=== PATIENT | male | born 1965 | race Hispanic/Latino ===

== ENCOUNTER 2021-06-01 22:05 | Emergency (ER) | payer SELFPAY ==
[2021-06-02] MEDS ORDERED: AZITHROMYCIN 250 MG TAB ONE (01:04)
[2021-06-02] MEDS ORDERED: predniSONE 20 MG TAB ONE (01:04)
[2021-06-02] MEDS ORDERED: FAMOTIDINE 20 MG TAB ONE (01:04)
[2021-06-02 01:13] LABS: SARS-COV-2 RT PCR POSITIVE (NEGATIVE)
--- NOTE | 2021-06-02 01:19 | EDPHYS ---
Physician Documentation [facility] Name: Romaine Ryan Age: 55 yrs Sex: Male : 1965 Arrival Date: 06/01/2021 Time: 22:08 Bed DIS2 Private MD: ED Physician Paco Knutson HPI: 06/01 23:45 This 55 yrs old Male presents to ER via Ambulatory with complaints of Cough, isaiah Runny Nose, Fever, BODY ACHES. 23:45 The patient or guardian reports airway noise, cough, described as mild, difficulty isaiah breathing. Onset: The symptoms/episode began/occurred 2 day(s) ago. Severity of symptoms: At their worst the symptoms were mild, in the emergency department the symptoms are unchanged. Modifying factors: The symptoms are alleviated by nothing, the symptoms are aggravated by exertion. Associated signs and symptoms: The patient has no apparent associated signs or symptoms. The patient has not experienced similar symptoms in the past. 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 - Social history:: Smoking status: Patient denies any tobacco usage or history of. Patient uses alcohol, occasionally. ROS: 23:49 Constitutional: Negative for fever, chills, and weight loss, Eyes: Negative for injury, isaiah pain, redness, and discharge, ENT: Negative for injury, pain, and discharge, Neck: Negative for injury, pain, and swelling, Cardiovascular: Negative for chest pain, palpitations, and edema, Abdomen/GI: Negative for abdominal pain, nausea, vomiting, diarrhea, and constipation, Back: Negative for injury and pain, : Negative for injury, bleeding, discharge, and swelling, MS/Extremity: Negative for injury and deformity, Skin: Negative for injury, rash, and discoloration, Neuro: Negative for headache, weakness, numbness, tingling, and seizure, Psych: Negative for depression, anxiety, suicide ideation, homicidal ideation, and hallucinations, Allergy/Immunology: Negative for hives, rash, and allergies, Endocrine: Negative for neck swelling, polydipsia, polyuria, polyphagia, and marked weight changes, Hematologic/Lymphatic: Negative for swollen nodes, abnormal bleeding, and unusual bruising. 23:49 Respiratory: Positive for cough, shortness of breath, at rest. Exam: 23:49 Constitutional: This is a well developed, well nourished patient who is awake, alert, isaiah and in no acute distress. Head/Face: Normocephalic, atraumatic. Eyes: Pupils equal round and reactive to light, extra-ocular motions intact. Lids and lashes normal. Conjunctiva and sclera are non-icteric and not injected. Cornea within normal limits. Periorbital areas with no swelling, redness, or edema. ENT: Nares patent. No nasal discharge, no septal abnormalities noted. Tympanic membranes are normal and external auditory canals are clear. Oropharynx with no redness, swelling, or masses, exudates, or evidence of obstruction, uvula midline. Mucous membranes moist. Neck: Trachea midline, no thyromegaly or masses palpated, and no cervical lymphadenopathy. Supple, full range of motion without nuchal rigidity, or vertebral point tenderness. No Meningismus. Chest/axilla: Normal chest wall appearance and motion. Nontender with no deformity. No lesions are appreciated. Cardiovascular: Regular rate and rhythm with a normal S1 and S2. No gallops, murmurs, or rubs. Normal PMI, no JVD. No pulse deficits. Abdomen/GI: Soft, non-tender, with normal bowel sounds. No distension or tympany. No guarding or rebound. No evidence of tenderness throughout. Back: No spinal tenderness. No costovertebral tenderness. Full range of motion. Male : Normal genitalia with no discharge or lesions. Skin: Warm, dry with normal turgor. Normal color with no rashes, no lesions, and no evidence of cellulitis. MS/ Extremity: Pulses equal, no cyanosis. Neurovascular intact. Full, normal range of motion. Neuro: Awake and alert, GCS 15, oriented to person, place, time, and situation. Cranial nerves II-XII grossly intact. Motor strength 5/5 in all extremities. Sensory grossly intact. Cerebellar exam normal. Normal gait. Psych: Awake, alert, with orientation to person, place and time. Behavior, mood, and affect are within normal limits. 23:49 Respiratory: the patient does not display signs of respiratory distress, Respirations: normal, no acute changes, Breath sounds: bronchial sounds, that are mild, are scattered, decreased breath sounds, that are mild, are scattered, rhonchi, that are mild, stridor, is not appreciated, + upper airway congestion. wheezing: expiratory Vital Signs: 22:50 BP 110 / 79; Pulse 89; Resp 18; Temp 98.6(O); Pulse Ox 100% on R/A; Weight 72.57 kg kg (R); Height 5 ft. 8 in. (172.72 cm) (R); Pain 06/01; 06/02 01:32 BP 97 / 74; Pulse 82; Resp 20; Temp 98; Pulse Ox 99% on R/A; lp1 06/01 22:50 Body Mass Index 24.33 (72.57 kg, 172.72 cm) kg MDM: 06/01 23:31 Patient medically screened. [facility] 23:49 Differential diagnosis: bronchitis, flu. Antibiotic administration: The patient is isaiah discharged and will get outpatient antibiotics, Zithromax. The patient's Wells Deep Vein Thrombosis Score was calculated as follows: Total Score: 3-6 Pts - Mod Risk. Differential Diagnosis: Bronchitis Influenza Upper Respiratory Infection Sinusitis Pneumonia. The patient's pulmonary embolism risk score was calculated as follows: Total Score: 0-2 points. This patient was found to be at low risk for a pulmonary embolism by using the Well's assessment criteria. Immunization status: Influenza vaccine: Data reviewed: vital signs, nurses notes, lab test result(s), radiologic studies, plain films. Data interpreted: awake overnight monitor: rate is 89 beats/min, rhythm is regular, Pulse oximetry: on room air is 89 %. Test interpretation: by ED physician or midlevel provider: plain radiologic studies. Counseling: I had a detailed discussion with the patient and/or guardian regarding: the historical points, exam findings, and any diagnostic results supporting the discharge/admit diagnosis, lab results, radiology results. 06/01 23:45 Order name: Chest Pa And Lat (2 Views) XRAY isaiah 06/02 01:13 Order name: COVID-19/FLU A+B; Complete Time: 01:16 EDMS Administered Medications: 06/02 00:58 Drug: Zithromax (azithromycin) 500 mg Route: PO; lp1 01:16 Follow up: Response: No adverse reaction lp1 00:58 Drug: predniSONE 60 mg Route: PO; lp1 01:16 Follow up: Response: No adverse reaction lp1 00:58 Drug: Pepcid (famotidine) 20 mg Route: PO; lp1 01:16 Follow up: Response: No adverse reaction lp1 Disposition Summary: 06/02/21 01:18 Discharge Ordered Location: Home [facility] Problem: new [facility] Symptoms: have improved isaiah Condition: Stable isaiah Diagnosis - Acute bronchitis, unspecified isaiah - Cough isaiah - Coronavirus infection, unspecified isaiah Followup: [facility] - With: Private Physician - When: 2 - 3 days - Reason: Recheck today's complaints, Continuance of care, Re-evaluation by your physician Followup: [facility] - With: Cesar Badillo MD - When: 2 - 3 days - Reason: Recheck today's complaints, Continuance of care, Re-evaluation by your physician Discharge Instructions: - Discharge Summary Sheet [facility] - Acute Bronchitis, Adult isaiah - Cool Mist Vaporizer [facility] - Cough, Adult, [id number] [facility] - Aspirin and Your Heart [facility] - Cough, Adult [facility] - COVID-19 [facility] Forms: - Medication Reconciliation Form [facility] - Thank You Letter [facility] - Antibiotic Education [facility] - Prescription Opioid Use [facility] Prescriptions: - albuterol sulfate 90 mcg/actuation Inhalation HFA aerosol inhaler - inhale 2 puff by INHALATION route every 3-4 hours; 2 Pump; Refills: 0, Product [facility] Selection Permitted - Pepcid 20 mg Oral Tablet - take 1 tablet by ORAL route every 12 hours for 15 days; 30 tablet; Refills: 0, [facility] Product Selection Permitted - Zithromax 500 mg Oral Tablet - take 1 tablet by ORAL route once daily for 4 days; 4 tablet; Refills: 0, [facility] Product Selection Permitted - ivermectin 3 mg Oral tablet - take 4 tablet by ORAL route once daily; 20 tablet; Refills: 0, Product [facility] Selection Permitted - Prednisone 20 mg Oral Tablet - take 1 tablet by ORAL route once daily for 5 days; 5 tablet; Refills: 0, [facility] Product Selection Permitted Signatures: Dispatcher [employer] Paco Gibbons MD MD cha Pena, Laura, RN RN lp1 Azael, Ivory, RN RN kg Corrections: (The following items were deleted from the chart) 06/01 23:55 22:57 CORONAVIRUS+MR.LAB.JAQUAN ordered. EDMS EDMS 22:57 Influenza Screen (A \T\ B)+BA.ASTON.JAQUAN ordered. EDMS EDMS
--- NOTE | 2021-06-02 01:19 | ER ---
Nurse's Notes [facility] Name: Romaine Ryan Age: 55 yrs Sex: Male : 1965 Arrival Date: 06/01/2021 Time: 22:08 Bed DIS2 Private MD: Diagnosis: Acute bronchitis, unspecified;Cough;Coronavirus infection, unspecified Presentation: 06/01 22:50 Chief complaint: Patient states: Fever, Chills, Cough, Headache, Chest pain, SOB x 2 kg days. Coronavirus screen: Client denies travel out of the [place] in the last 14 days. At this time, unable to obtain information related to travel outside the [place] Client presents with at least one sign or symptom that may indicate coronavirus-19. Standard/surgical mask placed on the client. Provider contacted for isolation considerations. Ebola Screen: Patient negative for fever greater than or equal to 101.5 degrees Fahrenheit, and additional compatible Ebola Virus Disease symptoms Patient denies exposure to infectious person. Patient denies travel to an Ebola-affected area in the 21 days before illness onset. Initial Sepsis Screen: Does the patient meet any 2 criteria? No. Patient's initial sepsis screen is negative. Does the patient have a suspected source of infection? No. Patient's initial sepsis screen is negative. Risk Assessment: Do you want to hurt yourself or someone else? Patient reports no desire to harm self or others. Onset of symptoms was May 30, 2021. 22:50 Method Of Arrival: Ambulatory kg 22:50 Acuity: DAVID 4 kg Triage Assessment: 22:53 General: Appears uncomfortable, Behavior is calm, cooperative, appropriate for age, kg quiet. Pain: Complains of pain in face Pain radiates to Generalized Pain currently is 8 out of 10 on a pain scale. at worst was 8 out of 10 on a pain scale. level that patient reports is acceptable is 3 out of 10 on a pain scale. Quality of pain is described as squeezing, throbbing. 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 - Social history:: Smoking status: Patient denies any tobacco usage or history of. Patient uses alcohol, occasionally. Screenin:56 Abuse screen: Denies threats or abuse. Denies injuries from another. Nutritional kg screening: No deficits noted. Tuberculosis screening: No symptoms or risk factors identified. Fall Risk None identified. Assessment: 06/02 01:30 Reassessment: Patient appears in no apparent distress at this time. Patient readiness lp1 for discharge. Vital Signs: 06/01 22:50 BP 110 / 79; Pulse 89; Resp 18; Temp 98.6(O); Pulse Ox 100% on R/A; Weight 72.57 kg kg (R); Height 5 ft. 8 in. (172.72 cm) (R); Pain 06/01; 06/02 01:32 BP 97 / 74; Pulse 82; Resp 20; Temp 98; Pulse Ox 99% on R/A; lp1 06/01 22:50 Body Mass Index 24.33 (72.57 kg, 172.72 cm) kg ED Course: 06/01 22:08 Patient arrived in ED. wm 22:53 Triage completed. kg 22:53 Arm band placed on right wrist. kg 22:56 Patient has correct armband on for positive identification. kg 23:31 Paco Knutson MD is Attending Physician. isaiah 23:47 Tammy Taylor, RN is Primary Nurse. lp1 06/02 00:30 Chest Pa And Lat (2 Views) XRAY In Process Unspecified. EDMS 01:18 Cesar Badillo MD is Referral Physician. isaiah 01:33 No provider procedures requiring assistance completed. Patient did not have IV access lp1 during this emergency room visit. Administered Medications: 00:58 Drug: Zithromax (azithromycin) 500 mg Route: PO; lp1 01:16 Follow up: Response: No adverse reaction lp1 00:58 Drug: predniSONE 60 mg Route: PO; lp1 01:16 Follow up: Response: No adverse reaction lp1 00:58 Drug: Pepcid (famotidine) 20 mg Route: PO; lp1 01:16 Follow up: Response: No adverse reaction lp1 Outcome: 01:18 Discharge ordered by . isaiah 01:33 Discharged to home ambulatory. lp1 01:33 Condition: stable 01:33 Discharge instructions given to Instructed on discharge instructions, follow up and referral plans. medication usage, Demonstrated understanding of instructions, follow-up care, medications, Prescriptions given X 4. 01:34 Patient left the ED. lp1 Signatures: Dispatcher [employer] EDMS Paco Knutson MD MD cha Pena, Laura RN RN lp1 Ivory Addison RN RN Stephani Taylor Corrections: (The following items were deleted from the chart) 07:26 03:30 Reassessment: Patient appears in no apparent distress at this time. Patient lp1 readiness for discharge lp1
[2021-06-02 01:42] VITALS: BP 97/74; TEMP 98; O2SAT 99
--- NOTE | 2021-06-02 07:36 | RAD REPORT ---
EXAM DESCRIPTION: RAD - Chest Pa And Lat (2 Views) - 06/02/2021 12:30 am CLINICAL HISTORY: COUGH COMPARISON: No comparisons FINDINGS: No evidence of edema or pneumonia. The heart size is within normal limits.No acute osseous abnormality. No significant pleural effusions or pneumothorax. IMPRESSION: No acute cardiopulmonary disease.
== END 2021-06-02 01:34 | disposition home or self-care (01) ==
LOC: ER 22:05
DX: U07.1 COVID-19 (principal); J20.8 Acute bronchitis due to other specified organisms; Z88.1 Allergy status to other antibiotic agents; Z88.5 Allergy status to narcotic agent; Z88.7 Allergy status to serum and vaccine
CPT/HCPCS: 0240U; 71046; 99283; J7512; U0003

== ENCOUNTER 2024-06-25 10:48 | Emergency (ER) | payer OTHER, SELFPAY ==
[2024-06-25] MEDS ORDERED: HYDROCODONE/APAP 10/325 TAB ONE (11:13)
--- NOTE | 2024-06-25 12:35 | RAD REPORT ---
EXAM DESCRIPTION: RAD - Hand Right 3 View - 06/25/2024 11:36 am CLINICAL HISTORY: PAIN COMPARISON: No comparisons TECHNIQUE: Right hand, 3 views. FINDINGS: No fracture is identified. There is no dislocation or periosteal reaction noted. Scattered up to moderate degenerative most pronounced at the third and fourth digit distal interphala ngeal joints. Small linear/quadrangular radiodensities within the volar soft tissues of the distal forearm, nonspec ific, and could reflect sequelae of prior intervention versus calcifications. No foreign body or othe r soft tissue abnormality. IMPRESSION: No acute osseous abnormality. Findings as above.
--- NOTE | 2024-06-25 12:46 | EDPHYS ---
Physician Documentation [facility] Name: Romaine Ryan Age: 58 yrs Sex: Male : 1965 Arrival Date: 06/25/2024 Time: 10:48 Bed DX1 Private MD: ED Physician Donato Chavarria HPI: 06/25 11:14 This 58 yrs old Male presents to ER via Ambulatory with complaints of Hand rn Injury. 11:14 The patient or guardian reports decreased range of motion, injury, pain. The complaints rn affect the CMC of right thumb. Onset: The symptoms/episode began/occurred yesterday. Modifying factors: The symptoms are alleviated by holding still, the symptoms are aggravated by movement, dependent position. Severity of symptoms: At their worst the symptoms were moderate, in the emergency department the symptoms are unchanged. The patient has not experienced similar symptoms in the past. Patient reports accidentally fell off of tailgate yesterday, fall on outstretched hand with pain to the base of the right thumb. No other injury. Denies wrist pain. Does not take blood thinners. Is right-handed.. 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 - Infectious Disease History:: Denies. - Social history:: Smoking status: Patient denies any tobacco usage or history of. - Family history:: not pertinent. - Hospitalizations: : No recent hospitalization is reported. ROS: 11:14 Constitutional: Negative for fever, chills, and weight loss, Neck: Negative for injury, rn pain, and swelling, Cardiovascular: Negative for chest pain, palpitations, and edema, Respiratory: Negative for shortness of breath, cough, wheezing, and pleuritic chest pain, Back: Negative for injury and pain, MS/Extremity: Positive for injury and pain to right hand Skin: Negative for injury, rash, and discoloration, Neuro: Negative for headache, weakness, numbness, tingling, and seizure, Exam: 11:14 Constitutional: This is a well developed, well nourished patient who is awake, alert, rn appears in pain, holding right hand with opposite hand. MS/ Extremity: Pulses equal, no cyanosis. Neurovascular intact. Tenderness with swelling at the base of the right thumb and along second metacarpal. No open wound. No cyanosis. Cap refill intact. Vital Signs: 11:03 BP 165 / 74; Pulse 54; Resp 16; Temp 97.4; Pulse Ox 100% ; Weight 70.31 kg; Height 5 iw ft. 7 in. ; Pain 810; 11:03 Body Mass Index 24.28 (70.31 kg, 170.18 cm) iw 11:03 Pain Scale: Adult iw MDM: 11:05 Patient medically screened. rn 12:44 Differential diagnosis: dislocation, closed fracture, contusion. Data reviewed: vital rn signs, nurses notes, radiologic studies, plain films, and as a result, I will discharge patient. Counseling: I had a detailed discussion with the patient and/or guardian regarding the historical points, exam findings, and any diagnostic results supporting the discharge/admit diagnosis, radiology results, the need for outpatient follow up, to return to the emergency department if symptoms worsen or persist or if there are any questions or concerns that arise at home. Special discussion: I discussed with the patient/guardian in detail that at this point there is no indication for admission to the hospital. It is understood, however, that if the symptoms persist or worsen the patient needs to return immediately for re-evaluation. ED course: X-ray right hand images negative for acute fracture or dislocation per my interpretation. Patient will be placed in splint and discharged home with return precautions, can follow-up with Ortho or hand if symptoms do not improve.. 06/25 11:10 Order name: XRAY Hand RIGHT 3 View; Complete Time: 12:44 rn 06/25 12:47 Order name: Splint - Wrist: velcro wrist splint; Complete Time: 13:09 rn Administered Medications: 11:16 Drug: [place] PO 10 mg-325 mg 1 tabs PO once Route: PO; iw 11:20 Follow up: Response: No adverse reaction iw Disposition Summary: 06/25/24 12:46 Discharge Ordered Notes: Location: Home rn Problem: new rn Symptoms: have improved rn Condition: Stable rn Diagnosis - Contusion of right hand rn Followup: rn - With: Private Physician - When: As needed - Reason: Recheck today's complaints, Re-evaluation by your physician Discharge Instructions: - Discharge Summary Sheet rn - Hand Contusion rn Forms: - Work release form iw - Medication Reconciliation Form rn - Antibiotic technical internship - Prescription Opioid Use rn - Patient Portal Instructions rn - Leadership Thank You Letter rn Prescriptions: - Tramadol 50 mg Oral Tablet - take 1 tablet ORAL route every 8 hours as needed; 12 tablet; Refills: 0, rn Product Selection Permitted Signatures: Dispatcher [employer] Manjula Tomas, RN RN iw Donato Chavarria MD MD rn
--- NOTE | 2024-06-25 12:46 | ER ---
Nurse's Notes [facility] Name: Romaine Ryan Age: 58 yrs Sex: Male : 1965 Arrival Date: 06/25/2024 Time: 10:48 Bed DX1 Private MD: Diagnosis: Contusion of right hand Presentation: 06/25 11:02 Chief complaint: Patient states: fell coming out of truck, fell on right wrist, iw happened last night. Coronavirus screen: At this time, the client does not indicate any symptoms associated with coronavirus-19. Ebola Screen: No symptoms or risks identified at this time. Initial Sepsis Screen: Does the patient meet any 2 criteria? No. Patient's initial sepsis screen is negative. Does the patient have a suspected source of infection? No. Patient's initial sepsis screen is negative. Onset of symptoms was June 24, 2024. 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 - Infectious Disease History:: Denies. - Social history:: Smoking status: Patient denies any tobacco usage or history of. - Family history:: not pertinent. - Hospitalizations: : No recent hospitalization is reported. Assessment: 11:08 General: Appears uncomfortable, Behavior is calm, cooperative. Pain: Complains of pain iw in right hand. Neuro: Level of Consciousness is awake, alert, obeys commands, Oriented to person, place, time, situation. Cardiovascular: Patient's skin is warm and dry. Musculoskeletal: Range of motion: limited in right wrist Swelling present in right hand. Vital Signs: 11:03 BP 165 / 74; Pulse 54; Resp 16; Temp 97.4; Pulse Ox 100% ; Weight 70.31 kg; Height 5 iw ft. 7 in. ; Pain 8/10; 11:03 Body Mass Index 24.28 (70.31 kg, 170.18 cm) iw 11:03 Pain Scale: Adult iw ED Course: 10:50 Patient arrived in ED. ra3 11:02 Triage completed. iw 11:05 Donato Chavarria MD is Attending Physician. rn 11:16 Manjula Marin RN is Primary Nurse. iw 11:38 XRAY Hand RIGHT 3 View In Process Unspecified. EDMS Administered Medications: 11:16 Drug: [place] PO 10 mg-325 mg 1 tabs PO once Route: PO; iw 11:20 Follow up: Response: No adverse reaction iw Medication: 11:09 VIS not applicable for this client. iw Outcome: 12:46 Discharge ordered by . rn 13:12 Patient left the ED. iw Signatures: Dispatcher [employer] EDMS Manjula Marin RN RN Donato Chavarria MD MD rn [place], Ruby ra3
[2024-06-25 13:23] VITALS: BP 165/74; TEMP 97.4; O2SAT 100
== END 2024-06-25 13:12 | disposition home or self-care (01) ==
LOC: ER 10:48
DX: S60.221A Contusion of right hand, initial encounter (principal); W17.89XA Other fall from one level to another, initial encounter
CPT/HCPCS: 99282

== ENCOUNTER 2024-07-09 10:44 | Emergency (ER) | payer OTHER ==
--- OUTSIDE RECORDS SUMMARY | 2024-07-09 10:47 | XMS REPORT | Continuity of Care Document ---
Author Name Unknown Address [address] [facility] [address] [place] [address] [facility] thconnect Address [address] [facility] 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 Role Phone Pcp, Patient Does Not Have A Primary Care Physic pj Campaigns, Generic Provider Attending Clinician Unavailable Zenon Lee NP Attending Clinician [phone] Campaigns, Generic Provider Attending Clinician Unavailable HARIS ESPINOZA Attending Clinician Unavailable Haris Mejía Attending Clinician [phone] CADENCE MORRELL Attending Clinician Unavailable Cadence Morrell NP Attending Clinician [phone] LOLY PRICE Attending Clinician Unavailable Loly Price MD Attending Clinician [phone] MARQUITA SHAH Attending Clinician Unavailab Marquita Devi MD Attending Clinician [phone] HARIS ESPINOZA Admitting Clinician Unavailable CADENCE MORRELL Admitting Clinician Unavailable LOLY PRICE Admitting Clinician Unavailable MARQUITA SHAH Admitting Clinician Unavailab sandeep Payers Payer Name Policy Type Policy Number Effective Date Expirati on Date Source Problems Condition Name Condition Details Condition Category Status Onset Date Resolution Date Last Treatment Date Treating Clinician Comments Source Sprain of right wrist, initial encounter Sprain of right wrist, initial encounter Disease Active 06-21 00:00: 00 [facility] Foreign body in hand, right, initial encounter Foreign body in hand, right, initial encounter Disease Active 8-30 00:00: 00 [facility] Allergies, Adverse Reactions, Alerts Allergy Name Allergy Type Status Severity Reaction(s) Onset Date Inactive Date Treating Clinician Comments Source SULFAMET HOXAZOLE -TRIMETH OPRIM DRUG Active Swelling 3-26 00:00: 00 [facility] Sulfamet hoxazole -Trimeth oprim Propensi ty to adverse reaction s Active Swelling 3 00:00: 00 [facility] TRAMADOL DRUG INGREDI Active Swelling 0 7 00:00: 00 [facility] Tramadol Propensi ty to adverse reaction s Active Swelling 04-27 00:00: 00 [facility] Influenz a A (H1n1) Vac 09 (Pf) Propensi ty to adverse reaction s Active Anaphylaxis 02-18 00:00: 00 [facility] Levoflox acin Propensi ty to adverse reaction s Active Swelling 02-18 00:00: 00 [facility] Sulfa (Sulfona mide Antibiot ics) Propensi ty to adverse reaction s Active Swelling 02-18 00:00: 00 [facility] INFLUENZ A A (H1N1) VAC 09 (PF) DRUG Active Anaphylaxis 02-18 00:00: 00 [facility] LEVOFLOX ACIN DRUG INGREDI Active Swelling 02-18 00:00: 00 [facility] SULFA (SULFONA MIDE ANTIBIOT ICS) Drug Class Active Swelling 02-18 00:00: 00 [facility] Social History Social Habit Start Date Stop Date Quantity Comments Source Gender identity [facility] Sexual orientation [facility] Sex assigned at 1965 00:00:00 1965 00:00:00 [facility] Smoking Status Start Date Stop Date Source Tobacco smoking consumption unknown [facility] Medications Ordered Medication Name Filled Medication Name Start Date Stop Date Current Medication? Ordering Clinician Indication Dosage Frequency Signature (SIG) Comments Components Source HYDROcodone -acetaminop hen (NORCO) 10-325 mg tablet 1 tablet 06-21 14:45: 00 06-21 13:56 :00 No 1{tbl} 1 tablet, Oral, ONCE, 1 dose, On Mon06/21/24 at 0945, Routine [facility] iopamidol (ISOVUE 370-500 mL) injection 80 mL 01-15 18:30: 00 01-15 18:30 :00 No [id number] 80mL 80 mL, Intravenou s, ONCE, 1 dose, On Mon01/16/24 at 1330, Routine [facility] ondansetron (ZOFRAN (PF)) injection 4 mg 01-15 16:15: 00 01-15 16:22 :00 No 4mg 4 mg, Slow IV Push, ONCE, 1 dose, On Mon01/16/24 at 1115, [facility] FENTanyl PF (SUBLIMAZE (PF)) injection 50 mcg 01-15 16:15: 00 01-15 16:23 :00 No 50ug 50 mcg, Slow IV Push, ONCE, 1 dose, On Mon01/16/24 at 1115, [facility] iopamidol (ISOVUE 370-500 mL) injection 90 mL 07-01 16:00: 00 07-01 16:00 :00 No [id number] 90mL 90 mL, Intravenou s, ONCE, 1 dose, On 07/01/23 at 1100, Routine [facility] famotidine (PEPCID (PF)) injection 20 mg 07-01 15:30: 00 07-01 16:09 :00 No 20mg 20 mg, Slow IV Push, ONCE, 1 dose, On 07/01/23 at 1030, [facility] ketorolac (TORADOL) injection 30 mg 07-01 14:45: 00 07-01 14:07 :00 No 30mg 30 mg, Slow IV Push, ONCE, 1 dose, On 07/01/23 at 0945, Routine [facility] NaCl 0.9% (NS) bolus infusion 1,000 mL 07-01 14:30: 00 07-01 18:00 :00 No 1000mL at 999 mL/hr, 1,000 mL, IV Infusion, ONCE, 1 dose, On 07/01/23 at 0930, [facility] ondansetron (ZOFRAN-ODT ) disintegrat ing tablet 4 mg 04-27 14:15: 00 04-27 13:32 :00 No 4mg 4 mg, Oral, ONCE, 1 dose, On Cecille 04/27/23 at 0915, [facility] HYDROcodone -acetaminop hen (NORCO) 10-325 mg tablet 1 tablet 04-27 14:15: 00 04-27 13:31 :00 No 1{tbl} 1 tablet, Oral, ONCE, 1 dose, On Cecille 04/27/23 at 0915, [facility] naproxen 500 mg tablet 04-27 00:00: 00 05-08 04:59 :00 No [id number] 500mg Take 1 tablet by mouth in the morning and 1 tablet in the evening. Take with meals. Do all this for 10 days. [facility] HYDROcodone -acetaminop hen (NORCO) 10-325 mg tablet 04-27 00:00: 00 05-05 04:59 :00 No [id number] 1{tbl} Take 1 tablet by mouth every 6 (six) hours as needed for Pain (scale 4-6) for up to 7 days. Indication s: acute pain [facility] iopamidol (ISOVUE 370-500 mL) injection 100 mL 04-14 20:14: 00 04-14 20:14 :00 No [id number] 100mL 100 mL, Intravenou s, ONCE, 1 dose, On Mon04/14/23 at 1530, Routine [facility] NaCl 0.9% (NS) bolus infusion 1,000 mL 04-14 19:45: 00 04-14 22:26 :00 No 1000mL at 999 mL/hr, 1,000 mL, IV Infusion, ONCE, 1 dose, On Mon04/14/23 at 1445, [facility] ondansetron (ZOFRAN (PF)) injection 4 mg 04-14 19:00: 00 04-14 19:20 :00 No 4mg 4 mg, Slow IV Push, ONCE, 1 dose, On Mon04/14/23 at 1400, [facility] traMADOL 50 mg tablet 02-18 00:00: 00 07-01 00:00 :00 No [id number] 50mg Take 1 tablet by mouth every 6 (six) hours as needed for Pain (scale 1-3). [facility] Vital Signs Vital Name Observation Time Observation Value Comments S ource Systolic blood pressure 2024-06-21 13:17:00 123 mm[Hg] [facility] Diastolic blood pressure 2024-06-21 13:17:00 76 mm[Hg] [facility] Heart rate 2024-06-21 13:17:00 64 /min [facility] acute hospital Body temperature 2024-06-21 13:17:00 36.61 Fannie [facility] Respiratory rate 2024-06-21 13:17:00 18 /min [facility] Body height 2024-06-21 13:17:00 175.3 cm [facility] Body weight 2024-06-21 13:17:00 72.576 kg [facility] BMI 2024-06-21 13:17:00 23.63 kg/m2 [facility] Oxygen saturation in Arterial blood by Pulse oximetry 2024-06-21 13:17:00 100 /min [facility] Systolic blood pressure 2024-01-16 20:30:00 130 mm[Hg] [facility] Diastolic blood pressure 2024-01-16 20:30:00 91 mm[Hg] [facility] Heart rate 2024-01-16 20:30:00 57 /min General acute hospital Body temperature 2024-01-16 20:30:00 36.72 [facility] Respiratory rate 2024-01-16 20:30:00 15 /min [facility] Oxygen saturation in Arterial blood by Pulse oximetry 2024-01-16 20:30:00 99 /min [facility] Body height 2024-01-16 15:55:00 175.3 cm [facility] Body weight 2024-01-16 15:55:00 72.576 kg [facility] BMI 2024-01-16 15:55:00 23.63 kg/m2 [facility] Systolic blood pressure 2023-07-01 17:00:00 126 mm[Hg] [facility] Diastolic blood pressure 2023-07-01 17:00:00 91 mm[Hg] [facility] Heart rate 2023-07-01 17:00:00 52 /min [facility] Respiratory rate 2023-07-01 17:00:00 18 /min [facility] Oxygen saturation in Arterial blood by Pulse oximetry 2023-07-01 17:00:00 95 /min [facility] Body temperature 2023-07-01 13:39:12 36.44 [facility] Body height 2023-07-01 13:09:00 172.7 cm [facility] Body weight 2023-07-01 13:09:00 72.576 kg [facility] BMI 2023-07-01 13:09:00 24.33 kg/m2 [facility] Systolic blood pressure 2023-04-27 12:50:00 140 mm[Hg] [facility] Diastolic blood pressure 2023-04-27 12:50:00 89 mm[Hg] [facility] Heart rate 2023-04-27 12:50:00 59 /min [facility] Body temperature 2023-04-27 12:50:00 36.72 Fannie [facility] Respiratory rate 2023-04-27 12:50:00 20 /min [facility] Body height 2023-04-27 12:50:00 172.7 cm [facility] Body weight 2023-04-27 12:50:00 73.483 kg [facility] BMI 2023-04-27 12:50:00 24.63 kg/m2 [facility] Oxygen saturation in Arterial blood by Pulse oximetry 2023-04-27 12:50:00 100 /min [facility] Systolic blood pressure 2023-04-14 23:00:00 103 mm[Hg] [facility] Diastolic blood pressure 2023-04-14 23:00:00 84 mm[Hg] [facility] Heart rate 2023-04-14 23:00:00 60 /min [facility] acute hospital Respiratory rate 2023-04-14 23:00:00 18 /min [facility] Oxygen saturation in Arterial blood by Pulse oximetry 2023-04-14 23:00:00 98 /min [facility] Body temperature 2023-04-14 17:35:00 36.72 Fannie [facility] Body height 2023-04-14 17:35:00 172.7 cm [facility] Body weight 2023-04-14 17:35:00 74.39 kg [facility] BMI 2023-04-14 17:35:00 24.94 kg/m2 [facility] Procedures Procedure Date / Time Performed Performing Clinicia n Source XR HAND 3+ VW RIGHT 2024-06-21 13:52:02 Isabela Lee [facility] XR WRIST 3+ VW RIGHT 2024-06-21 13:52:02 Ezra Lee [facility] TROPONIN I 2024-01-16 19:16:00 Haris Espinoza [facility] URINALYSIS 2024-01-16 17:11:00 Haris Espinoza [facility] TROPONIN I 2024-01-16 16:15:00 Haris Espinoza [facility] COMP. METABOLIC PANEL ([id number]) 2024-01-16 16:15:00 Haris Espinoza [facility] CBC WITH DIFF 2024-01-16 16:15:00 Haris Espinoza [facility] N-TERMINAL PRO-BNP 2024-01-16 16:15:00 Stephenie Espinoza [facility] CT ABDOMEN PELVIS W CONTRAST 2023-07-01 15:44:18 Cadence Morrell [facility] US GALL BLADDER 2023-07-01 15:08:41 Cadence Morrell U [facility] LIPASE 2023-07-01 13:43:00 Cadence Morrell [facility] MAGNESIUM 2023-07-01 13:43:00 Cadence Morrell [facility] COMP. METABOLIC PANEL ([id number]) 2023-07-01 13:43:00 Cadence Morrell [facility] CBC WITH DIFF 2023-07-01 13:43:00 Cadence Morrell Uni [facility] CONSENT/REFUSAL FOR DIAGNOSIS AND TREATMENT 2023-07-01 12:56:33 Doctor Unassigned, [place] [facility] XR SHOULDER 2+ VW LEFT 2023-04-27 13:45:40 Buddy Price [facility] ASSIGNMENT OF BENEFITS 2023-04-27 13:33:27 Docto r Unassigned, [place] [facility] CONSENT/REFUSAL FOR DIAGNOSIS AND TREATMENT 2023-04-27 12:40:06 Doctor Unassigned, [place] [facility] URINALYSIS 2023-04-14 21:09:00 Marquita Shah Un [facility] CT ABDOMEN PELVIS W CONTRAST 2023-04-14 20:19:00 Marquita Shah [facility] RAPID INFLUENZA A/B 2023-04-14 19:59:00 Мария Shah [facility] RAPID RSV 2023-04-14 19:59:00 Marquita Shah Un [facility] COVID-19 (ID NOW RAPID TESTING) 2023-04-14 19:59:00 Marquita Shah [facility] XR CHEST 2 VW 2023-04-14 19:55:00 Marquita Shah [facility] LIPASE 2023-04-14 19:13:00 [facility] 2023-04-14 19:13:00 Marquita Shah Un [facility] COMP. METABOLIC PANEL ([id number]) 2023-04-14 19:13:00 Marquita Shah [facility] CBC WITH DIFF 2023-04-14 19:13:00 [facility]ENEF[facility] 2023-04-14 18:36:43 Docto r Unassigned, [place] [facility] NOTICE OF PRIVACY PRACTICES 2023-04-14 17:22:57 Doctor Unassigned, [place] [facility] CONSENT/REFUSAL FOR DIAGNOSIS AND TREATMENT 2023-04-14 17:21:07 Doctor Unassigned, [place] [facility] Encounters Start Date/Time End Date/Time Encounter Type Admission Type Attending [facility] Facility Care Department Encounter ID Source 2024-07-03 00:00:00 2024-07-03 10:49:00 Letter (Out) Campaigns, Generic Provider Campaigns, Generic Provider [facility] 1.2840.114 350.1.13.10 4.2.7.2.686 [id number] [facility] 2024-06-21 08:19:00 2024-06-21 10:31:00 Emergency Zenon Lee [facility] [id number] 350.1.13.10 4.2.7.2.686 [id number] [facility] 2024-01-24 00:00:00 2024-01-24 00:00:00 Letter (Out) Campaigns, Generic Provider [facility] 1.2840.114 350.1.13.10 4.2.7.2.686 [id number] [facility] 2024-01-16 10:56:00 2024-01-16 15:38:00 Emergency HARIS LEVY [facility] ERT [id number] [facility] 2024-01-16 10:56:00 2024-01-16 15:38:00 Emergency Haris Espinoza [facility] [id number] 350.1.13.10 4.2.7.2.686 [id number] [facility] 2023-07-01 08:15:00 2023-07-01 13:14:00 Emergency X CADENCE MORRELL [facility] ERT [id number] [facility] 2023-07-01 08:15:00 2023-07-01 13:14:00 Emergency Cadence Morrell [facility] [id number] 350.1.13.10 4.2.7.2.686 [id number] [facility] 2023-04-27 07:51:00 2023-04-27 09:52:00 Emergency X LOLY PRICE [facility] ERT [id number] [facility] 2023-04-27 07:51:00 2023-04-27 09:52:00 Emergency Loly Price [facility] 1.2.840.114 350.1.13.10 4.2.7.2.686 [id number] [facility] 2023-04-14 12:38:00 2023-04-14 18:51:00 Emergency X MARQUITA SHAH [facility] ERT [id number] [facility] 2023-04-14 12:38:00 2023-04-14 18:51:00 Emergency Marquita Shah [facility] [id number] 350.1.13.10 4.2.7.2.686 [id number] [facility] Results Test Description Test Time Test Comments Results Result Comments Source XR WRIST 3+ VW RIGHT 2024-05-25 0 14:40:51 EXAM: XR WRIST 3+ VW RIGHT, XR HAND 3+ VW RIGHT HISTORY: 58 years old Male with wrist swelling after a fall. COMPARISON: None FINDINGS: Imaging of the right wrist and hand demonstrates no acute fracture ordislocation. The joint spaces are maintained. Mild soft tissue swellingabout the wrist joint is noted. Rectangular radiopacities project over the radial and anterior aspect ofthe distal ulnar diaphysis. Punctate radiopacities are also seen in the palmar aspect of the seconddigit middle phalanx and fourth digit proximal phalangeal head, likelyrepresenting foreign bodies. [facility] XR HAND 3+ VW RIGHT 3 0 14:40:51 EXAM: XR WRIST 3+ VW RIGHT, XR HAND 3+ VW RIGHT HISTORY: 58 years old Male with wrist swelling after a fall. COMPARISON: None FINDINGS: Imaging of the right wrist and hand demonstrates no acute fracture ordislocation. The joint spaces are maintained. Mild soft tissue swellingabout the wrist joint is noted. Rectangular radiopacities project over the radial and anterior aspect ofthe distal ulnar diaphysis. Punctate radiopacities are also seen in the palmar aspect of the seconddigit middle phalanx and fourth digit proximal phalangeal head, likelyrepresenting foreign bodies. [facility]* Test Item Value Reference Range Interpretation Comme nts MAGNESIUM (test code = 5975943300) 2.1 mg/dL 1.7-2.4 Lab Interpretation (test cod e = 80512-6) [facility] ([id number])2023-07-01 14:24:15* Test Item Value Reference Range Interpretation Comme nts NA (test code = 9371018641) 137 mmol/L 135-145 K (test code = 7712744163) 4.3 mmol/L 3.5-5.0 CL (test code = 3485472466) 104 mmol/L 98-108 CO2 TOTAL (test code = 1228279703) 25 mmol/L 23-31 AGAP (test code = 2885741329) 8 2-16 BUN (test code = 6861624776) 26 mg/dL 7-23 H GLUCOSE (test code = 6967676618) 99 mg/dL 70-110 CREATININE (test code = 7110250231) 0.88 mg/dL 0.60-1.25 TOTAL BILI (test code = 1760563769) 0.7 mg/dL 0.1-1.1 CALCIUM (test code = 5745902146) 8.7 mg/dL 8.6-10.6 T PROTEIN (test code = 7525181369) 7.6 g/dL 6.3-8.2 ALBUMIN (test code = 6314148273) 4.5 g/dL 3.5-5.0 ALK PHOS (test code = 3638687657) 63 U/L 34-122 ALTv (test code = 1742-6) 29 U/L 5-50 AST(SGOT) (test code = 9455033722) 28 U/L 13-40 eGFR (test code = 9638261428) 88.9 mL/min/1.73m2 CLAUDETTE (test code = CLAUDETTE) Association of Glomerular Filtration Rate (GFR) and Staging of Kidney Disease* + --+ --+ ------+| GFR (mL/min/1.73 m2) ?| With Kidney Damage ?| ?Without Kidney Damage+ --------+ --------+ +| ?>90 ?| ?Stage one ?| ? Normal ?+ ---+ ---+ -------+| ?60-89 ?| ?Stage two ?| ? Decreased GFR ? + --+ --+ ------+| ?30-59 ?| ?Stage three ?| ? Stage three ? + --+ --+ ------+| ?15-29 ?| ?Stage four ? | ? Stage four ?+ ---+ ---+ -------+| ?<15 (or dialysis) ? ?| ?Stage five ? | ? Stage five ?+ ---+ ---+ -------+ *Each stage assumes the associated GFR level has been in effect for at least three months. ?Stages 1 to 5, with or without kidney disease, indicate chronic kidney disease. Notes: Determination of stages one and two (with eGFR >59mL/min/1.73 m2) requires estimation of kidney damage for at least three months as defined by structural or functional abnormalities of the kidney, manifested by either:Pathological abnormalities or Markers of kidney damage (including abnormalities in the composition of the blood or urine or abnormalities in imaging tests). Lab Interpretation (test code = 93267-2) [facility] 14:23:55* Test Item Value Reference Range Interpretation Comme nts LIPASE (test code = 1084696812) 39 U/L 0-220 Lab Interpretation (test cod e = 76045-0) Normal [facility] WITH [id number] 14:11:16* Test Item Value Reference Range Interpretation Comme nts WBC (test code = 6690-2) 4.23 See_Comment [Automated messa ge] The system which generated this result transmitted reference range: 4.20 - 10.70 10*3/?L. The reference range was not used to interpret this result as normal/abnormal. RBC (test code = 789-8) 4.71 See_Comment [Automated messa ge] The system which generated this result transmitted reference range: 4.26 - 5.52 10*6/?L. The reference range was not used to interpret this result as normal/abnormal. HGB (test code = 718-7) 15.1 g/dL 12.2-16.4 HCT (test code = 4544-3) 42.8 % 38.4-49.3 MCV (test code = 787-2) 90.9 fL 81.7-95.6 MCH (test code = 785-6) 32.1 pg 26.1-32.7 MCHC (test code = 786-4) 35.3 g/dL 31.2-35.0 H RDW-SD (test code = 50265-2) 44.7 fL 38.5-51.6 RDW-CV (test code = 788-0) 13.2 % 12.1-15.4 PLT (test code = 777-3) 277 See_Comment [Automated messa ge] The system which generated this result transmitted reference range: 150 - 328 10*3/?L. The reference range was not used to interpret this result as normal/abnormal. MPV (test code = 78409-6) 8.8 fL 9.8-13.0 L NRBC/100 WBC (test code = 1332707814) 0.0 See_Comment [Automated me ssage] The system which generated this result transmitted reference range: 0.0 - 10.0 /100 WBCs. The reference range was not used to interpret this result as normal/abnormal. NRBC x10^3 (test code = 4238362569) See_Comment [Automated messa ge] The system which generated this result transmitted reference range: 10*3/?L. The reference range was not used to interpret this result as normal/abnormal. GRAN MAT (NEUT) % (test code = 770-8) 55.4 % IMM GRAN % (test code = 1291431184) 0.20 % LYMPH % (test code = 736-9) 32.4 % MONO % (test code = 5905-5) 7.8 % EOS % (test code = 713-8) 3.5 % BASO % (test code = 706-2) 0.7 % GRAN MAT x10^3(ANC) (test code = 2404290043) 2.34 10*3/uL 1.99-6.95 IMM GRAN x10^3 (test code = 2614292062) 0.00-0.06 LYMPH x10^3 (test code = 731-0) 1.37 10*3/uL 1.09-3.23 MONO x10^3 (test code = 742-7) 0.33 10*3/uL 0.36-1.02 L EOS x10^3 (test code = 711-2) 0.15 10*3/uL 0.06-0.53 BASO x10^3 (test code = 704-7) 0.03 10*3/uL 0.01-0.09 Lab Interpretation (test code = 71959-6) [facility]normal [facility] 19:48:23* Test Item Value Reference Range Interpretation Comme nts MAGNESIUM (test code = 7386564412) 2.3 mg/dL 1.7-2.4 Lab Interpretation (test cod e = 53273-2) Normal [facility] (09219)2023-04-14 19:48:03* Test Item Value Reference Range Interpretation Comme nts NA (test code = 9756448415) 137 mmol/L 135-145 K (test code = 8431475597) 4.5 mmol/L 3.5-5.0 CL (test code = 3326185524) 100 mmol/L 98-108 CO2 TOTAL (test code = 6665045666) 26 mmol/L 23-31 AGAP (test code = 8508755517) 11 2-16 BUN (test code = 8199084816) 28 mg/dL 7-23 H GLUCOSE (test code = 7904055520) 89 mg/dL 70-110 CREATININE (test code = 6764490168) 0.94 mg/dL 0.60-1.25 TOTAL BILI (test code = 0725442263) 0.9 mg/dL 0.1-1.1 CALCIUM (test code = 2503617153) 8.6 mg/dL 8.6-10.6 T PROTEIN (test code = 7641464172) 7.9 g/dL 6.3-8.2 ALBUMIN (test code = 4478027114) 4.6 g/dL 3.5-5.0 ALK PHOS (test code = 3600797254) 71 U/L 34-122 ALTv (test code = 1742-6) 40 U/L 5-50 AST(SGOT) (test code = 0656499917) 32 U/L 13-40 eGFR (test code = 7927339530) 82.4 mL/min/1.73m2 CLAUDETTE (test code = CLAUDETTE) Association of Glomerular Filtration Rate (GFR) and Staging of Kidney Disease* + --+ --+ ------+| GFR (mL/min/1.73 m2) ?| With Kidney Damage ?| ?Without Kidney Damage+ --------+ --------+ +| ?>90 ?| ?Stage one ?| ? Normal ?+ ---+ ---+ -------+| ?60-89 ?| ?Stage two ?| ? Decreased GFR ? + --+ --+ ------+| ?30-59 ?| ?Stage three ?| ? Stage three ? + --+ --+ ------+| ?15-29 ?| ?Stage four ? | ? Stage four ?+ ---+ ---+ -------+| ?<15 (or dialysis) ? ?| ?Stage five ? | ? Stage five ?+ ---+ ---+ -------+ *Each stage assumes the associated GFR level has been in effect for at least three months. ?Stages 1 to 5, with or without kidney disease, indicate chronic kidney disease. Notes: Determination of stages one and two (with eGFR >59mL/min/1.73 m2) requires estimation of kidney damage for at least three months as defined by structural or functional abnormalities of the kidney, manifested by either:Pathological abnormalities or Markers of kidney damage (including abnormalities in the composition of the blood or urine or abnormalities in imaging tests). Lab Interpretation (test code = 38322-3) [facility] 19[facility]48:03* Test Item Value Reference Range Interpretation Comme nts LIPASE (test code = 8943591610) 61 U/L 0-220 Lab Interpretation (test cod e = 82304-0) [facility] [id number] 19:39:21* Test Item Value Reference Range Interpretation Comme nts WBC (test code = 6690-2) 4.79 See_Comment [Automated messa ge] The system which generated this result transmitted reference range: 4.20 - 10.70 10*3/?L. The reference range was not used to interpret this result as normal/abnormal. RBC (test code = 789-8) 4.64 See_Comment [Automated messa ge] The system which generated this result transmitted reference range: 4.26 - 5.52 10*6/?L. The reference range was not used to interpret this result as normal/abnormal. HGB (test code = 718-7) 14.5 g/dL 12.2-16.4 HCT (test code = 4544-3) 41.4 % 38.4-49.3 MCV (test code = 787-2) 89.2 fL 81.7-95.6 MCH (test code = 785-6) 31.3 pg 26.1-32.7 MCHC (test code = 786-4) 35.0 g/dL 31.2-35.0 RDW-SD (test code = 35882-3) 40.9 fL 38.5-51.6 RDW-CV (test code = 788-0) 12.5 % 12.1-15.4 PLT (test code = 777-3) 294 See_Comment [Automated messa ge] The system which generated this result transmitted reference range: 150 - 328 10*3/?L. The reference range was not used to interpret this result as normal/abnormal. MPV (test code = 98363-5) 9.0 fL 9.8-13.0 L NRBC/100 WBC (test code = 8830241212) 0.0 See_Comment [Automated me ssage] The system which generated this result transmitted reference range: 0.0 - 10.0 /100 WBCs. The reference range was not used to interpret this result as normal/abnormal. NRBC x10^3 (test code = 0338504817) See_Comment [Automated messa ge] The system which generated this result transmitted reference range: 10*3/?L. The reference range was not used to interpret this result as normal/abnormal. GRAN MAT (NEUT) % (test code = 770-8) 55.0 % IMM GRAN % (test code = 5934526783) 0.40 % LYMPH % (test code = 736-9) 34.0 % MONO % (test code = 5905-5) 8.1 % EOS % (test code = 713-8) 1.9 % BASO % (test code = 706-2) 0.6 % GRAN MAT x10^3(ANC) (test code = 6010202048) 2.63 10*3/uL 1.99-6.95 IMM GRAN x10^3 (test code = 1227394317) 0.00-0.06 LYMPH x10^3 (test code = 731-0) 1.63 10*3/uL 1.09-3.23 MONO x10^3 (test code = 742-7) 0.39 10*3/uL 0.36-1.02 EOS x10^3 (test code = 711-2) 0.09 10*3/uL 0.06-0.53 BASO x10^3 (test code = 704-7) 0.03 10*3/uL 0.01-0.09 Lab Interpretation (test code = 48765-5) Abnormal [facility] Notes Date/Time Note Provider Source 2024-06-21 10:29:29 PT D/C home. GCS15, VS stable, no ataxia noted. Given no prescriptions and D/C paperwork. Pt ambulatory with family at time of discharge. Pt educated on wrist strain, splint use, foreign body, med usage, follow up care with ortho, s/s worsening condition. Pt verbalized understanding. [facility] 2024-06-21 08:16:22 Slipped out of vehicle 0530 this AM. Caught himself with right arm. Swelling to right wrist area. He's concerned he broke it. Kori Shannon RN [facility] 2024-01-16 15:37:26 Pt discharged with diagnosis of atypical chest pain, encouraged hydration. Printed and verbal instructions reviewed with and given to pt. Pt. verbalized understanding of teaching and recommended follow-up. Denies questions or concerns at this time. Pt ambulatory at discharge. Appears in no apparent distress. No ataxia noted. Advised to seek medical attention for new/prolonged/worsening of symptoms, Symptoms improved. No adverse reaction to meds given in ER noted upon discharge PIV d'cd, dressing to site, catheter in tact. Joanie Tidwell RN [facility] 2024-01-16 12:54:43 Assumed care from VAIBHAV Priest [facility] 2024-01-16 12:54:30 Report to Joanie ESPOSITO La rPiest RN [facility] 2024-01-16 10:52:43 Pt arrived via private car with c/o chest pain that has been ongoing x3 days and becoming worse. 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 [facility] 2023-07-01 08:11:59 Formatting of this n ote might be different from the original. LUQ abd pain with N/V/D starting in Nov worsening today; Denies having a GI specialist; patient reports 10 pound weight loss within a week; Denies pmh T Sadia Olivarez RN [facility]
[2024-07-09] MEDS ORDERED: METHYLPREDNISOLONE 125 MG INJ ONE (11:17)
[2024-07-09] MEDS ORDERED: CEFTRIAXONE 1000 MG/VIAL ONE (11:17)
[2024-07-09] MEDS ORDERED: ONDANSETRON 4 MG/2 ML VIAL ONE (11:17)
[2024-07-09] MEDS ORDERED: NA CHLORIDE 0.9% 1,000 ML ONE (11:18)
[2024-07-09] MEDS ORDERED: MORPHINE 4 MG/ML SYR ONE (11:18)
[2024-07-09] MEDS ORDERED: PANTOPRAZOLE 40 MG INJ ONE (11:18)
[2024-07-09 11:25] LABS: Absolute Eosinophils 0.1 K/uL (0-0.5); Absolute Monocytes 0.6 K/uL (0.1-1.3); Absolute Neutrophil 1.5 K/uL (1.8-8.0); Basophils % 0.9 % (0-1.3); Eosinophils % 2.7 % (0-4.4); Hemoglobin 14.5 g/dL (13.6-17.9); Lymphocytes % 30.4 % (15.3-44.8); MCH 31.9 pg (27.0-35.0); MCHC 34.5 g/dL (32.0-36.0); MCV 92.5 fL (80-100); MPV 6.8 fL (7.6-11.3); Monocytes % 17.6 % (3.3-12.3); Neutrophils % 48.4 % (41.7-73.7); Nucleated Red Blood Cells % 0.3 % (0-0); Platelets 274 thou/uL (152-406); RBC Red Blood Cell Count 4.54 M/uL (4.33-5.43); Red Cell Distribution Width 13.4 % (12.1-15.2)
[2024-07-09 11:27] LABS: SARS-CoV-2 Antigen CONTROL BLUE LINE VIS/BG OK; SARS-CoV-2 Antigen Rapid Res Negative (Negative)
[2024-07-09 11:41] LABS: Albumin 3.9 g/dL (3.4-5.0); Anion Gap 8.6 mEq/L (5.0-15.0); Bilirubin Total 0.7 mg/dL (0.2-1.0); Globulin 3.8 g/dL (2.3-3.5); Potassium 3.6 mEq/L (3.5-5.1); Protein, Total 7.7 g/dL (6.4-8.2)
--- NOTE | 2024-07-09 12:19 | RAD REPORT ---
EXAM: CT CHEST, ABDOMEN AND PELVIS WITH CONTRAST CLINICAL INDICATION: Male, 58 years old. Pain, swelling, cough TECHNIQUE: CT chest, abdomen and pelvis was performed, following the administration of contrast, as p er department protocol. Axial, sagittal and coronal reconstructions were obtained. One or more of the following dose reduction techniques were used: Automated exposure control, adjustment of the mA a nd/or kV according to patient size, and/or iterative reconstruction. Unless otherwise specified, incidental findings do not require dedicated imaging follow-up. COMPARISON: No prior exam. FINDINGS: LUNGS AND AIRWAYS: No evidence of airspace or interstitial process. No nodules. PLEURA: No pleural effusion. No pneumothorax. MEDIASTINUM AND LYMPH NODES: A few upper limit of normal lymph nodes in the mediastinum. THORACIC AORTA: Normal caliber and configuration. PULMONARY ARTERIES: Normal caliber. OSSEOUS STRUCTURES AND CHEST WALL: Intact. LIVER: Normal in size and contour. No focal lesion or biliary digitation. PANCREAS: No mass, ductal dilation, or brian-pancreatic fluid. SPLEEN: Normal size. No focal lesion. ADRENALS: Normal; no mass. KIDNEYS AND URETERS: Normal size and contour. No hydronephrosis. URINARY BLADDER: Normal contour. GASTROINTESTINAL TRACT: No bowel obstruction, free air, significant free fluid or abscess. There is m oderate diverticulosis coli of the sigmoid colon without diverticulitis. Moderate stool is retained throughout the colon. APPENDIX: Nonvisualized appendix. LYMPH NODES: No lymphadenopathy. ABDOMINAL AORTA AND OTHER VESSELS: Normal caliber aorta and IVC. MUSCULOSKELETAL: Mild degenerative anterolisthesis L5 on S1. IMPRESSION: No acute or significant abnormalities seen in the chest, abdomen or pelvis. Moderate stool retention throughout the colon with sigmoid diverticulosis coli present.
--- NOTE | 2024-07-09 13:20 | ER ---
Nurse's Notes [facility] Name: Romaine Ryan Age: 58 yrs Sex: Male : 1965 Arrival Date: 07/09/2024 Time: 10:44 Bed 5 Private MD: Diagnosis: Acute upper respiratory infection, unspecified;Cough;Weakness Presentation: 07/09 10:52 Chief complaint: Patient states: Cough, congestion, runny nose, upper abdominal pain ll1 with N/V/D, SALEH fatigue for 4 days. Coronavirus screen: Client denies travel out of the [place] in the last 14 days. congestion, cough unrelated to allergies, diarrhea, fatigue, headache, muscle pain, nausea, vomiting. Client presents with at least one sign or symptom that may indicate coronavirus-19. Standard/surgical mask placed on the client. Ebola Screen: Patient denies travel to an Ebola-affected area in the 21 days before illness onset. Initial Sepsis Screen: Does the patient meet any 2 criteria? No. Patient's initial sepsis screen is negative. Does the patient have a suspected source of infection? No. Patient's initial sepsis screen is negative. Risk Assessment: Do you want to hurt yourself or someone else? Patient reports no desire to harm self or others. Onset of symptoms was July 06, 2024. 10:52 Method Of Arrival: Ambulatory 1 10:52 Acuity: DAVID 3 ll1 Triage Assessment: 10:55 General: Appears uncomfortable, ill, Behavior is calm, cooperative, appropriate for ll1 age. Pain: Complains of pain in upper abdominal area Pain currently is 7 out of 10 on a pain scale. Quality of pain is described as aching, crampy, Pain began 4 days ago. EENT: Reports nasal discharge that is watery. Neuro: Reports headache weakness. Respiratory: Reports cough that is. GI: Reports upper abdominal pain, cramping, diarrhea, nausea, vomiting. 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 - Infectious Disease History:: Denies. - Social history:: Smoking status: Patient denies any tobacco usage or history of. - Family history:: not pertinent. Screenin:50 [facility] ED Fall Risk Assessment (Adult) History of falling in the last 3 months, rs5 including since admission No falls in past 3 months (0 pts) Confusion or Disorientation No (0 pts) Intoxicated or Sedated No (0 pts) Impaired Gait No (0 pts) Mobility Assist Device Used No (0 pt) Altered Elimination No (0 pt) Score/Fall Risk Level 0 - 2 = Low Risk Oriented to surroundings, Maintained a safe environment. Abuse screen: Denies threats or abuse. Nutritional screening: No deficits noted. Tuberculosis screening: No symptoms or risk factors identified. Assessment: 10:50 General: Appears in no apparent distress. uncomfortable, Behavior is calm, cooperative. rs5 Pain: Complains of pain in generalized body aches Pain currently is 8 out of 10 on a pain scale. Quality of pain is described as aching, Is intermittent. Pain:. Neuro: Level of Consciousness is awake, alert, obeys commands, Oriented to person, place, time, situation. Neuro: Reports headache weakness fatigue. Cardiovascular: Patient's skin is warm and dry. Respiratory: Airway is compromised Respiratory effort is even, unlabored, Respiratory pattern is regular, symmetrical. GI: Abdomen is round non-distended, Abd is soft and non tender X 4 quads. Reports diarrhea, nausea, vomiting. : No signs and/or symptoms were reported regarding the genitourinary system. EENT: No signs and/or symptoms were reported regarding the EENT system. Derm: Skin is intact, Skin is pink, warm \T\ dry. Musculoskeletal: Range of motion: intact in all extremities. 12:01 Reassessment: Patient and/or family updated on plan of care and expected duration. Pain rs5 level reassessed. Patient is alert, oriented x 3, equal unlabored respirations, skin warm/dry/pink. Patient states feeling better. 12:55 Reassessment: Patient and/or family updated on plan of care and expected duration. Pain rs5 level reassessed. Patient is alert, oriented x 3, equal unlabored respirations, skin warm/dry/pink. 13:55 Reassessment: No changes from previously documented assessment. rs5 Vital Signs: 10:52 BP 146 / 85; Pulse 67; Resp 17; Temp 98; Pulse Ox 99% on R/A; Weight 70.31 kg; Height 5 ll1 ft. 8 in. ; Pain 7/10; 12:19 BP 137 / 81; Pulse 72; Resp 17; Pulse Ox 99% on R/A; rs5 13:28 BP 137 / 89; Pulse 59; Resp 18; Temp 98.1; Pulse Ox 100% ; me1 10:52 Body Mass Index 23.57 (70.31 kg, 172.72 cm) ll1 10:52 Pain Scale: Adult ll1 ED Course: 10:46 Patient arrived in ED. mr 10:47 Paco Knutson MD is Attending Physician. isaiah 10:47 Arm band placed on Patient placed in an exam room, on a stretcher. ll1 10:50 Patient has correct armband on for positive identification. Placed in gown. Bed in low rs5 position. Call light in reach. Side rails up X2. 10:50 No provider procedures requiring assistance completed. rs5 10:55 Triage completed. ll1 11:01 Inserted saline lock: 20 gauge in left forearm, using aseptic technique. Blood rs5 collected. Flushed with 10 mL NS. 11:04 Dany Martin, RN is Primary Nurse. rs5 11:53 CT Chest, Abdomen, Pelvis - W/Contrast In Process Unspecified. EDMS 13:32 Provided Education on: POC. Verbalized understanding. . me1 13:55 IV discontinued, intact, bleeding controlled, No redness/swelling at site. Pressure rs5 dressing applied. Administered Medications: 11:15 Drug: NS 0.9% IV 1000 ml IV at 1 bolus Per protocol; 1000 mL bolus Route: IV; Rate: 1 rs5 bolus; Site: left forearm; 11:22 Follow up: IV Status: Completed infusion; IV Intake: 1000ml rs5 12:05 Follow up: Response: No adverse reaction; IV Status: Completed infusion rs5 11:15 Drug: MethylPrednisoLONE IVP 125 mg IVP once Route: IVP; Site: left forearm; rs5 11:30 Follow up: Response: No adverse reaction rs5 11:15 Drug: Pantoprazole IVP 40 mg IVP once Route: IVP; Site: left forearm; rs5 11:30 Follow up: Response: No adverse reaction rs5 11:15 Drug: Ondansetron IVP 4 mg IVP once; over 2 minutes Route: IVP; Site: left forearm; rs5 11:30 Follow up: Response: No adverse reaction rs5 11:20 Drug: morphine IVP or IV 4 mg IVP once over 4 mins Route: IVP; Infused Over: 4 mins; rs5 Site: left forearm; 11:33 Follow up: Response: No adverse reaction; Pain is decreased rs5 11:20 Drug: Rocephin IV 1 grams IV at per protocol once; Given slow IV push per pharmacy rs5 instructions Route: IV; Rate: per protocol; Site: left forearm; 11:35 Follow up: IV Status: Completed infusion rs5 11:40 Follow up: Response: No adverse reaction rs5 13:28 Drug: predniSONE PO 60 mg PO once Route: PO; me1 13:30 Follow up: Response: No adverse reaction me1 13:28 Drug: Levalbuterol Inhalation 2.5 mg Inhalation once Route: Inhalation; me1 13:55 Follow up: Response: No adverse reaction rs5 13:28 Drug: Ipratropium Inhalation Aerosol 0.5 mg Inhalation once Route: Inhalation; me1 13:55 Follow up: Response: No adverse reaction rs5 13:28 Drug: Amoxicillin-Clavulanate PO 875 mg PO once Route: PO; me1 13:30 Follow up: Response: No adverse reaction me1 Medication: 12:05 VIS not applicable for this client. rs5 Intake: 11:22 IV: 1000ml; Total: 1000ml. rs5 Outcome: 13:19 Discharge ordered by MD. colon 13:55 Discharged to home ambulatory, rs5 13:55 Condition: stable rs5 13:55 Discharge instructions given to patient, family, Instructed on discharge instructions, follow up and referral plans. medication usage, Demonstrated understanding of instructions, follow-up care, medications, Prescriptions given X 4, 13:57 Patient left the ED. rs5 Signatures: Dispatcher [employer] EDPaco Jean MD MD cha Rivera, Mary, Reg Reg mr Donny Olson, RN RN ll1 Dany Martin RN RN rs5 Maine Kuo RN RN me1 Corrections: (The following items were deleted from the chart) 14:16 14:00 Reassessment: No changes from previously documented assessment. rs5 rs5
--- NOTE | 2024-07-09 13:20 | EDPHYS ---
Physician Documentation [facility] Name: Romaine Ryan Age: 58 yrs Sex: Male : 1965 Arrival Date: 07/09/2024 Time: 10:44 Bed 5 Private MD: ED Physician Paco Knutson HPI: 07/09 11:00 This 58 yrs old Male presents to ER via Ambulatory with complaints of Flu isaiah Symptoms. 11:00 The patient has shortness of breath at rest, with light activity. Onset: The isaiah symptoms/episode began/occurred 3 day(s) ago. Duration: The symptoms are continuous, and are steadily getting worse. The patient's shortness of breath is aggravated by nothing, is alleviated by rest. The patient presents with abdominal pain in the upper abdomen. Onset: The symptoms/episode began/occurred 2 day(s) ago. The patient or guardian reports airway noise, cough, difficulty breathing, flu symptoms. Modifying factors: The symptoms are alleviated by nothing. the symptoms are aggravated by nothing. Severity of symptoms: At their worst the symptoms were moderate in the emergency department the symptoms are unchanged. 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 - Infectious Disease History:: Denies. - Social history:: Smoking status: Patient denies any tobacco usage or history of. - Family history:: not pertinent. ROS: 11:00 Constitutional: Negative for fever, chills, and weight loss, Eyes: Negative for injury, isaiah pain, redness, and discharge, ENT: Negative for injury, pain, and discharge, Neck: Negative for injury, pain, and swelling, Cardiovascular: Negative for chest pain, palpitations, and edema, Back: Negative for injury and pain, : Negative for injury, bleeding, discharge, and swelling, MS/Extremity: Negative for injury and deformity, Skin: Negative for injury, rash, and discoloration, Neuro: Negative for headache, weakness, numbness, tingling, and seizure, 11:00 Respiratory: Positive for cough, shortness of breath, at rest. 11:00 Abdomen/GI: Positive for abdominal pain, abdominal cramps, of the right upper quadrant and left upper quadrant, Exam: 11:00 Constitutional: This is a well developed, well nourished patient who is awake, alert, isaiah and in no acute distress. Head/Face: Normocephalic, atraumatic. Eyes: Pupils equal round and reactive to light, extra-ocular motions intact. Lids and lashes normal. Conjunctiva and sclera are non-icteric and not injected. Cornea within normal limits. Periorbital areas with no swelling, redness, or edema. ENT: Nares patent. No nasal discharge, no septal abnormalities noted. Tympanic membranes are normal and external auditory canals are clear. Oropharynx with no redness, swelling, or masses, exudates, or evidence of obstruction, uvula midline. Mucous membranes moist. Neck: Trachea midline, no thyromegaly or masses palpated, and no cervical lymphadenopathy. Supple, full range of motion without nuchal rigidity, or vertebral point tenderness. No Meningismus. Chest/axilla: Normal chest wall appearance and motion. Nontender with no deformity. No lesions are appreciated. Cardiovascular: Regular rate and rhythm with a normal S1 and S2. No gallops, murmurs, or rubs. Normal PMI, no JVD. No pulse deficits. Respiratory: Lungs have equal breath sounds bilaterally, clear to auscultation and percussion. No rales, rhonchi or wheezes noted. No increased work of breathing, no retractions or nasal flaring. Back: No spinal tenderness. No costovertebral tenderness. Full range of motion. Male : Normal genitalia with no discharge or lesions. Skin: Warm, dry with normal turgor. Normal color with no rashes, no lesions, and no evidence of cellulitis. MS/ Extremity: Pulses equal, no cyanosis. Neurovascular intact. Full, normal range of motion. Neuro: Awake and alert, GCS 15, oriented to person, place, time, and situation. Cranial nerves II-XII grossly intact. Motor strength 5/5 in all extremities. Sensory grossly intact. Cerebellar exam normal. Normal gait. Psych: Awake, alert, with orientation to person, place and time. Behavior, mood, and affect are within normal limits. 11:00 Abdomen/GI: Inspection: abdomen appears normal, Bowel sounds: normal, Palpation: mild abdominal tenderness, moderate abdominal tenderness, in the right upper quadrant and left upper quadrant, Liver: no appreciated palpable abnormalities, Hernia: not appreciated, Vital Signs: 10:52 BP 146 / 85; Pulse 67; Resp 17; Temp 98; Pulse Ox 99% on R/A; Weight 70.31 kg; Height 5 ll1 ft. 8 in. ; Pain 7/10; 12:19 BP 137 / 81; Pulse 72; Resp 17; Pulse Ox 99% on R/A; rs5 13:28 BP 137 / 89; Pulse 59; Resp 18; Temp 98.1; Pulse Ox 100% ; me1 10:52 Body Mass Index 23.57 (70.31 kg, 172.72 cm) ll1 10:52 Pain Scale: Adult ll1 MDM: 10:47 Patient medically screened. [facility] 11:03 Differential diagnosis: obstructed airway, tracheal injury, bronchitis, flu, URI, viral isaiah Infection, bacterial infection, URI, bronchitis, pneumonia UTI. Antibiotic administration: The patient is discharged and will get outpatient antibiotics, Amoxicillin. Differential Diagnosis: Obstructed Airway Bronchitis Influenza Upper Respiratory Infection Sinusitis Viral Syndrome Pneumonia. Immunization status: Influenza vaccine: within last 5 years. Data reviewed: vital signs, nurses notes, lab test result(s), radiologic studies. Consideration of Admission/Observation Escalation of care including admission/observation considered. I considered the following discharge prescriptions or medication management in the emergency department Medications were administered in the Emergency Department. See MAR. Independent interpretation of the following test(s) in the Emergency Department X-Ray: My interpretation is ct c/a/p. Test considered but Not performed: EKG: no ekg. Historians other than the Patient: pt well informed. Care significantly affected by the following chronic conditions: etoh. Counseling: I had a detailed discussion with the patient and/or guardian regarding the historical points, exam findings, and any diagnostic results supporting the discharge/admit diagnosis, lab results, radiology results, the need for outpatient follow up. 07/09 10:48 Order name: Flu; Complete Time: 13:09 [facility] 07/09 10:48 Order name: Strep [facility] 07/09 10:48 Order name: SARS RAPID; Complete Time: 13: [facility] 07/09 11:00 Order name: CBC with Diff; Complete Time: 13:09 [facility] 07/09 11:00 Order name: Comprehensive Metabolic Panel; Complete Time: 13:09 [facility] 07/09 11:00 Order name: Lipase; Complete Time: 13: [facility] 07/09 11:30 Order name: Throat Culture EDMS 07/09 11:00 Order name: CT Chest, Abdomen, Pelvis - W/Contrast; Complete Time: 13:09 [facility] Administered Medications: 11:15 Drug: NS 0.9% IV 1000 ml IV at 1 bolus Per protocol; 1000 mL bolus Route: IV; Rate: 1 rs5 bolus; Site: left forearm; 11:22 Follow up: IV Status: Completed infusion; IV Intake: 1000ml rs5 12:05 Follow up: Response: No adverse reaction; IV Status: Completed infusion rs5 11:15 Drug: MethylPrednisoLONE IVP 125 mg IVP once Route: IVP; Site: left forearm; rs5 11:30 Follow up: Response: No adverse reaction rs5 11:15 Drug: Pantoprazole IVP 40 mg IVP once Route: IVP; Site: left forearm; rs5 11:30 Follow up: Response: No adverse reaction rs5 11:15 Drug: Ondansetron IVP 4 mg IVP once; over 2 minutes Route: IVP; Site: left forearm; rs5 11:30 Follow up: Response: No adverse reaction rs5 11:20 Drug: morphine IVP or IV 4 mg IVP once over 4 mins Route: IVP; Infused Over: 4 mins; rs5 Site: left forearm; 11:33 Follow up: Response: No adverse reaction; Pain is decreased rs5 11:20 Drug: Rocephin IV 1 grams IV at per protocol once; Given slow IV push per pharmacy rs5 instructions Route: IV; Rate: per protocol; Site: left forearm; 11:35 Follow up: IV Status: Completed infusion rs5 11:40 Follow up: Response: No adverse reaction rs5 13:28 Drug: predniSONE PO 60 mg PO once Route: PO; me1 13:30 Follow up: Response: No adverse reaction me1 13:28 Drug: Levalbuterol Inhalation 2.5 mg Inhalation once Route: Inhalation; me1 13:55 Follow up: Response: No adverse reaction rs5 13:28 Drug: Ipratropium Inhalation Aerosol 0.5 mg Inhalation once Route: Inhalation; me1 13:55 Follow up: Response: No adverse reaction rs5 13:28 Drug: Amoxicillin-Clavulanate PO 875 mg PO once Route: PO; me1 13:30 Follow up: Response: No adverse reaction me1 Disposition Summary: 07/09/24 13:19 Discharge Ordered Notes: Location: Home isaiah Problem: new isaiah Symptoms: have improved isaiah Condition: Stable isaiah Diagnosis - Acute upper respiratory infection, unspecified isaiah - Cough isaiah - Weakness isaiah Followup: isaiah - With: Private Physician - When: 2 - 3 days - Reason: Recheck today's complaints, Continuance of care, Re-evaluation by your physician Discharge Instructions: - Discharge Summary Sheet isaiah - Upper Respiratory Infection, Adult isaiah - Weakness isaiah - Cool Mist Vaporizer isaiah - Fatigue isaiah - Upper Respiratory Infection, Adult, [id number] isaiah - Cough, Adult, [id number] isaiah - Weakness, [id number] isaiah - Cough, Adult isaiah Forms: - Medication Reconciliation Form [facility] - Antibiotic Education isaiah - Prescription Opioid Use isaiah - Patient Portal Instructions [facility] - Leadership Thank You Letter [facility] - Work release form rs5 Prescriptions: - albuterol sulfate 90 mcg/actuation Inhalation HFA Aerosol Inhaler - inhale 2 inhalation INHALATION route every 4 to 6 hours as needed for shortness isaiah of breath or wheezing; 2 unit; Refills: 0, Product Selection Permitted - Augmentin 875-125 mg Oral tablet - take 1 tablet ORAL route every 12 hours for 7 days; 14 tablet; Refills: 0, [facility] Product Selection Permitted - Tessalon Perles 100 mg Oral capsule - take 2 capsule ORAL route every 8 hours As needed; 30 capsule; Refills: 0, [facility] Product Selection Permitted - Prednisone 20 mg Oral Tablet - take 2 tablets ORAL route once daily for 5 days; 10 tablet; Refills: 0, Product [facility] Selection Permitted - Guaifenesin AC 10-100 mg/5 mL Oral liquid - take 7.5 milliliter ORAL route every 6 hours As needed; 160 milliliter; [facility] Refills: 0, Product Selection Permitted Signatures: Dispatcher [employer] Paco Gibbons MD MD cha Lewis, Lynsay, RN RN ll1 Dany Martin RN RN rs5 Maine Kuo RN RN me1 Corrections: (The following items were deleted from the chart) 11:00 11:00 Chest Abdomen Pelvis W [id number] ordered. EDMS EDMS
[2024-07-09] MEDS ORDERED: AMOX/K CLAV 875 MG TAB ONE (13:22)
[2024-07-09] MEDS ORDERED: LEVALBUTEROL 1.25 MG/3 ML NEB ONE (13:22)
[2024-07-09] MEDS ORDERED: IPRATROPIUM BROM 0.5MG/2.5ML ONE (13:22)
[2024-07-09] MEDS ORDERED: predniSONE 20 MG TAB ONE (13:22)
[2024-07-09 14:05] VITALS: BP 137/89; TEMP 98.1; O2SAT 100
== END 2024-07-09 13:57 | disposition home or self-care (01) ==
LOC: ER 10:44
DX: J06.9 Acute upper respiratory infection, unspecified (principal); R53.1 Weakness; Z11.52 Encounter for screening for COVID-19
CPT/HCPCS: 87070; 85025; 36415; 87081; 83690; 80053; 87804 ×2; 71260; 74177; 87811; Q9967; J7512; J7614; J7644; J2470; J2919; J2405; J7030; J0696; 96374; 96375; 99285

== ENCOUNTER 2024-12-13 08:27 | Emergency (ER) | payer OTHER ==
--- OUTSIDE RECORDS SUMMARY | 2024-12-13 08:31 | XMS REPORT | Continuity of Care Document ---
Author Name Unknown Address [address] [facility] [address]. [address] [place] [address] [facility] thconnect Address [address] [facility]. [address] [place] [address] Care Team Providers Care Health Facilities Surveyor Name Role Phone Pcp, Patient Does Not Have A Primary Care Physic pj Campaigns, Generic Provider Attending Clinician Unavailable VIANCA JAMES Attending Clinician Unavailable VIANCA JAMES Attending Clinician Unavailable Jacob HOUSE CARPENTERVianca Gooden Attending Clinician [phone] Zenon Lee NP Attending Clinician [phone] Campaigns, Generic Provider Attending Clinician Unavailable HARIS ESPINOZA Attending Clinician Unavailable Haris Mejía Attending Clinician [phone] CADENCE MORRELL Attending Clinician Unavailable Cadence Morrell NP Attending Clinician [phone] LOLY PRICE Attending Clinician Unavailable Loly Price MD Attending Clinician [phone] MARQUITA SHAH Attending Clinician Unavailab Marquita Devi MD Attending Clinician [phone] VIANCA JAMES Admitting Clinician Unavailable HARIS ESPINOZA Admitting Clinician Unavailable CADENCE MORRELL [...] of right wrist, initial encounter Disease Active 8-30 00:00: 00 [facility] Foreign body in hand, right, initial encounter Foreign body in hand, right, initial encounter Disease Active 8-30 00:00: 00 [facility] Allergies, Adverse Reactions, Alerts Allergy Name Allergy Type Status Severity Reaction(s) Onset Date Inactive Date Treating Clinician Comments Source SULFAMET HOXAZOLE -TRIMETH OPRIM DRUG Active Swelling 3- 00:00: 00 [facility] Sulfamet hoxazole -Trimeth oprim Propensi ty to adverse reaction s Active Swelling 3 00:00: 00 [facility] TRAMADOL DRUG INGREDI Active Swelling 04-27 00:00: 00 [facility] Tramadol Propensi ty to adverse reaction s Active Swelling 04-27 00:00: 00 [facility] Influenz a A (H1n1) Vac 09 (Pf) Propensi ty to adverse reaction s Active Anaphylaxis 02-18 00:00: 00 [facility] Levoflox acin Propensi ty to adverse reaction s Active Swelling 02-18 00:00: 00 [facility] Sulfa (Sulfona mide Antibiot ics) Propensi ty to adverse reaction s Active Swelling 02-18 00:00: 00 [facility] INFLUENZ A A (H1N1) VAC 09 (PF) DRUG Active Anaphylaxis 02-18 00:00: 00 [facility] LEVOFLOX ACIN DRUG INGREDI Active Swelling 02-18 00:00: 00 [facility] SULFA (SULFONA MIDE ANTIBIOT ICS) Drug Class Active Swelling 02-18 00:00: 00 [facility] Social History Social Habit Start Date Stop Date Quantity Comments Source Gender identity [facility] Sexual orientation U [facility] Sex assigned at 1965 00:00:00 1965 00:00:00 [facility] Smoking Status Start Date Stop Date Source Tobacco smoking consumption unknown [facility] Medications Ordered Medication Name Filled Medication Name Start Date Stop Date Current Medication? Ordering Clinician Indication Dosage Frequency Signature (SIG) Comments Components Source NaCl 0.9% (NS) IV infusion 1,000 mL 11-05 23:00: 00 11-06 01:00 :00 No 1000mL at 999 mL/hr, Intravenou s, ONCE, 1 dose, On Mon11/05/24 at 1700, Routine [facility] acetaminoph en (TYLENOL) tablet 650 mg 11-05 22:00: 00 11-05 23:24 :00 No 650mg 650 mg, Oral, ONCE, 1 dose, On Mon11/05/24 at 1600, ZARINA [facility] ondansetron (ZOFRAN (PF)) injection 4 mg 11-05 22:00: 00 11-05 23:32 :00 No 4mg 4 mg, Slow IV Push, ONCE, 1 dose, On Mon11/05/24 at 1600, Administer over 2-5 Minutes, 2 mL [facility] bromphenira mine-pseudo ephedrine-D M (BROMFED DM) 2-30-10 mg/5 mL syrup 11-05 00:00: 00 Yes [id number] 5mL Take 5 mL by mouth 3 (three) times daily as needed for Congestion /Allergies , Cold symptoms or Cough. [facility] ondansetron 4 mg disintegrat ing tablet 11-05 00:00: 00 Yes [id number] 4mg Take 1 tablet by mouth every 8 (eight) hours as needed for Nausea and Vomiting (N/V). [facility] HYDROcodone -acetaminop hen (NORCO) 10-325 mg tablet 1 tablet 06-21 14:45: 00 06-21 13:56 :00 No 1{tbl} 1 tablet, Oral, ONCE, 1 dose, On Mon06/21/24 at 0945, Routine [facility] iopamidol (ISOVUE 370-500 mL) injection 80 mL 01-15 18:30: 00 01-15 18:30 :00 No [id number] 80mL 80 mL, Intravenou s, ONCE, 1 dose, On 01/16/24 at 1330, Routine [facility] ondansetron (ZOFRAN (PF)) injection 4 mg 01-15 16:15: 00 01-15 16:22 :00 No 4mg 4 mg, Slow IV Push, ONCE, 1 dose, On 01/16/24 at 1115, [facility] FENTanyl PF (SUBLIMAZE (PF)) injection 50 mcg 01-15 16:15: 00 01-15 16:23 :00 No 50ug 50 mcg, Slow IV Push, ONCE, 1 dose, On 01/16/24 at 1115, [facility] iopamidol (ISOVUE 370-500 mL) injection 90 mL 07-01 16:00: 00 07-01 16:00 :00 No [id number] 90mL 90 mL, Intravenou s, ONCE, 1 dose, On 07/01/23 at 1100, [facility] famotidine (PEPCID (PF)) injection 20 mg 07-01 15:30: 00 07-01 16:09 :00 No 20mg 20 mg, Slow IV Push, ONCE, 1 dose, On 07/01/23 at 1030, [facility] ketorolac (TORADOL) injection 30 mg 07-01 14:45: 00 07-01 14:07 :00 No 30mg 30 mg, Slow IV Push, ONCE, 1 dose, On 07/01/23 at 0945, Routine [facility] NaCl 0.9% (NS) bolus infusion 1,000 mL 07-01 14:30: 00 07-01 18:00 :00 No 1000mL at 999 mL/hr, 1,000 mL, IV Infusion, ONCE, 1 dose, On 07/01/23 at 0930, [facility] ondansetron (ZOFRAN-ODT ) disintegrat ing tablet 4 mg 04-27 14:15: 00 04-27 13:32 :00 No 4mg 4 mg, Oral, ONCE, 1 dose, On Mon04/27/23 at 0915, [facility] HYDROcodone -acetaminop hen (NORCO) 10-325 mg tablet 1 tablet 04-27 14:15: 00 04-27 13:31 :00 No 1{tbl} 1 tablet, Oral, ONCE, 1 dose, On Mon04/27/23 at 0915, [facility] naproxen 500 mg tablet 04-27 00:00: 00 05-08 04:59 :00 No [id number] 500mg Take 1 tablet by mouth in the morning and 1 tablet in the evening. Take with meals. Do all this for 10 days. [facility] HYDROcodone -acetaminop hen (NORCO) 10-325 mg tablet 04-27 00:00: 00 05-05 04:59 :00 No [id number] 1{tbl} Take 1 tablet by mouth every 6 (six) hours as needed for Pain (scale 4-6) for up to 7 days. Indication s: acute pain [facility] iopamidol (ISOVUE 370-500 mL) injection 100 mL 04-14 20:14: 00 04-14 20:14 :00 No [id number] 100mL 100 mL, Intravenou s, ONCE, 1 dose, On Mon04/14/23 at 1530, Routine [facility] NaCl 0.9% (NS) bolus infusion 1,000 mL 04-14 19:45: 00 04-14 22:26 :00 No 1000mL at 999 mL/hr, 1,000 mL, IV Infusion, ONCE, 1 dose, On Mon04/14/23 at 1445, [facility] ondansetron (ZOFRAN (PF)) injection 4 mg 04-14 19:00: 00 04-14 19:20 :00 No 4mg 4 mg, Slow IV Push, ONCE, 1 dose, On Mon04/14/23 at 1400, ZARINA [facility] traMADOL 50 mg tablet 2018-0 02-18 00:00: 00 07-01 00:00 :00 No [id number] 50mg Take 1 tablet by mouth every 6 (six) hours as needed for Pain (scale 1-3). [facility] Vital Signs Vital Name Observation Time Observation Value Comments S zoebettie Systolic blood pressure 2024-11-06 01:00:00 126 mm[Hg] [facility] Diastolic blood pressure 2024-11-06 01:00:00 70 mm[Hg] [facility] Heart rate 2024-11-06 01:00:00 83 /min [facility] Body temperature 2024-11-06 01:00:00 37.11 Fannie [facility] Respiratory rate 2024-11-06 01:00:00 18 /min [facility] Oxygen saturation in Arterial blood by Pulse oximetry 2024-11-06 01:00:00 96 /min [facility] Body height 2024-11-05 21:40:00 175.3 cm [facility] Body weight 2024-11-05 21:40:00 68.04 kg [facility] BMI 2024-11-05 21:40:00 22.15 kg/m2 [facility] Systolic blood pressure 2024-06-21 13:17:00 123 mm[Hg] [facility] Diastolic blood pressure 2024-06-21 13:17:00 76 mm[Hg] [facility] Heart rate 2024-06-21 13:17:00 64 /min [facility] Body temperature 2024-06-21 13:17:00 36.61 Fannie [facility] Respiratory rate 2024-06-21 13:17:00 18 /min [facility] Body height 2024-06-21 13:17:00 175.3 cm [facility] Body weight 2024-06-21 13:17:00 72.576 kg [facility] BMI 2024-06-21 13:17:00 23.63 kg/m2 [facility] Oxygen saturation in Arterial blood by Pulse oximetry 2024-06-21 13:17:00 100 /min [facility] Systolic blood pressure 2024-01-16 20:30:00 130 mm[Hg] [facility] Diastolic blood pressure 2024-01-16 20:30:00 91 mm[Hg] [facility] Heart rate 2024-01-16 20:30:00 57 /min [facility] Body temperature 2024-01-16 20:30:00 36.72 Fannie [facility] Respiratory rate 2024-01-16 20:30:00 15 /min [facility] Oxygen saturation in Arterial blood by Pulse oximetry 2024-01-16 20:30:00 99 /min [facility] Body height 2024-01-16 15:55:00 175.3 cm [facility] Body weight 2024-01-16 15:55:00 72.576 kg [facility] BMI 2024-01-16 15:55:00 23.63 kg/m2 [facility] Systolic blood pressure 2023-07-01 17:00:00 126 mm[Hg] [facility] Diastolic blood pressure 2023-07-01 17:00:00 91 mm[Hg] [facility] Heart rate 2023-07-01 17:00:00 52 /min [facility] Respiratory rate 2023-07-01 17:00:00 18 /min [facility] Oxygen saturation in Arterial blood by Pulse oximetry 2023-07-01 17:00:00 95 /min [facility] Body temperature 2023-07-01 13:39:12 36.44 Fannie [facility] Body height 2023-07-01 13:09:00 172.7 cm [facility] Body weight 2023-07-01 13:09:00 72.576 kg [facility] BMI 2023-07-01 13:09:00 24.33 kg/m2 [facility] Systolic blood pressure 2023-04-27 12:50:00 140 mm[Hg] [facility] Diastolic blood pressure 2023-04-27 12:50:00 89 mm[Hg] [facility] Heart rate 2023-04-27 12:50:00 59 /min [facility] Body temperature 2023-04-27 12:50:00 36.72 Fannie [facility] Respiratory rate 2023-04-27 12:50:00 20 /min [facility] Body height 2023-04-27 12:50:00 172.7 cm [facility] Body weight 2023-04-27 12:50:00 73.483 kg [facility] BMI 2023-04-27 12:50:00 24.63 kg/m2 [facility] Oxygen saturation in Arterial blood by Pulse oximetry 2023-04-27 12:50:00 100 /min [facility] Systolic blood pressure 2023-04-14 23:00:00 103 mm[Hg] [facility] Diastolic blood pressure 2023-04-14 23:00:00 84 mm[Hg] [facility] Heart rate 2023-04-14 23:00:00 60 /min [facility] Respiratory rate 2023-04-14 23:00:00 18 /min [facility] Oxygen saturation in Arterial blood by Pulse oximetry 2023-04-14 23:00:00 98 /min [facility] Body temperature 2023-04-14 17:35:00 36.72 Fannie [facility] Body height 2023-04-14 17:35:00 172.7 cm [facility] Body weight 2023-04-14 17:35:00 74.39 kg [facility] BMI 2023-04-14 17:35:00 24.94 kg/m2 [facility] Procedures Procedure Date / Time Performed Performing Clinicia n Source LIPASE 2024-11-05 23:30:00 Vianca James [facility] COMP. METABOLIC PANEL ([id number]) 2024-11-05 23:30:00 Vianca James [facility] CBC WITH DIFF 2024-11-05 23:30:00 Vianca James [facility] URINALYSIS 2024-11-05 23:30:00 Vianca James [facility] XR CHEST 2 VW 2024-11-05 22:13:[facility] A 2024-11-05 21:43:[address] [facility]/B RSV COVID NAAT 2024-11-05 21:43:00 Vianca James [facility] XR HAND 3+ VW RIGHT 2024-06-21 13:52:02 Isabela Lee [facility] XR WRIST 3+ VW RIGHT 2024-06-21 13:52:02 Ezra Lee [facility] TROPONIN I 2024-01-16 19:16:00 Smith [facility] URINALYSIS 2024-01-16 17:11:00 Smith [facility] TROPONIN I 2024-01-16 16:15:00 Smith Haris [facility] COMP. METABOLIC PANEL ([id number]) 2024-01-16 16:15:00 Haris Espinoza [facility] CBC WITH DIFF 2024-01-16 16:15:[address] [facility] N-TERMINAL PRO-BNP 2024-01-16 16:15:00 Stephenie Espinoza [facility] CT ABDOMEN PELVIS W CONTRAST 2023-07-01 15:44:18 Cadence Morrell [facility] US GALL BLADDER 2023-07-01 15:08:41 Cadence Morrell [facility] LIPASE 2023-07-01 13:43:00 Cadence Morrell [facility] MAGNESIUM 2023-07-01 13:43:00 Cadence Morrell [facility] COMP. METABOLIC PANEL (04799) 2023-07-01 13:43:00 Cadence Morrell [facility] CBC WITH DIFF 2023-07-01 13:43:[address] [facility] CONSENT/REFUSAL FOR DIAGNOSIS AND TREATMENT 2023-07-01 12:56:33 Doctor Unassigned, [place] [facility] XR SHOULDER 2+ VW LEFT 2023-04-27 13:45:40 Buddy Price [facility] ASSIGNMENT OF BENEFITS 2023-04-27 13:33:27 Docto r Unassigned, [place] [facility] CONSENT/REFUSAL FOR DIAGNOSIS AND TREATMENT 2023-04-27 12:40:06 Doctor Unassigned, [place] [facility] URINALYSIS 2023-04-14 21:09:00 Marquita Shah [facility] ABDOMEN PELVIS W CONTRAST 2023-04-14 20:19:00 Marquita Shah [facility] RAPID INFLUENZA A/B 2023-04-14 19:59:00 Мария Shah [facility] RAPID RSV 2023-04-14 19:59:00 Marquita Shah Un [facility] COVID-19 (ID NOW RAPID TESTING) 2023-04-14 19:59:00 Marquita Shah [facility] XR CHEST 2 VW 2023-04-14 19:55:00 Marquita Shah [facility] LIPASE 2023-04-14 19:13:00 Marquita Shah [facility] MAGNESIUM 2023-04-14 19:13:00 Marquita Shah Un [facility] COMP. METABOLIC PANEL ([id number]) 2023-04-14 19:13:00 Marquita Shah [facility] CBC WITH DIFF 2023-04-14 19:13:00 Marquita Shah U [facility] ASSIGNMENT OF BENEFITS 2023-04-14 18:36:43 Docto r Unassigned, [place] [facility] NOTICE OF PRIVACY PRACTICES 2023-04-14 17:22:57 Doctor Unassigned, [place] [facility] CONSENT/REFUSAL FOR DIAGNOSIS AND TREATMENT 2023-04-14 17:21:07 Doctor Unassigned, [place] [facility] Encounters Start Date/Time End Date/Time Encounter Type Admission Type Attending [facility] Facility Care Department Encounter ID Source 2024-11-13 00:00:00 2024-11-13 10:02:01 Letter (Out) Campaigns, Generic Provider Campaigns, Generic Provider [facility] 1.2.840.114 350.1.13.10 4.2.7.2.686 [id number] [facility] 2024-11-05 15:41:00 2024-11-05 19:03:00 Emergency X VIANCA JAMES SHINTA [facility] ERT [id number] [facility] 2024-11-05 15:41:00 2024-11-05 19:03:00 Emergency Vianca James [facility] 1.2.840.114 350.1.13.10 4.2.7.2.686 [id number] [facility] 2024-07-03 00:00:00 2024-07-03 10:49:00 Letter (Out) Campaigns, Generic Provider Campaigns, Generic Provider [facility] 1.2.840.114 350.1.13.10 4.2.7.2.686 [id number] [facility] 2024-06-21 08:19:00 2024-06-21 10:31:00 Emergency Zenon Lee [facility] 1.2.840.114 350.1.13.10 4.2.7.2.686 [id number] [facility] 2024-01-24 00:00:00 2024-01-24 00:00:00 Letter (Out) Campaigns, Generic Provider [facility] 1.2.840.114 350.1.13.10 4.2.7.2.686 [id number] [facility] 2024-01-16 10:56:00 2024-01-16 15:38:00 Emergency X HARIS ESPINOZA [facility] ERT [id number] [facility] 2024-01-16 10:56:00 2024-01-16 15:38:00 Emergency Haris Espinoza [facility] 1.2.840.114 350.1.13.10 4.2.7.2.686 [id number] [facility] 2023-07-01 08:15:00 2023-07-01 13:14:00 Emergency X CADENCE MORRELL [facility] ERT [id number] [facility] 2023-07-01 08:15:00 2023-07-01 13:14:00 Emergency Cadence Morrell [facility] 1.2.840.114 350.1.13.10 4.2.7.2.686 [id number] [facility] 2023-04-27 07:51:00 2023-04-27 09:52:00 Emergency X LOLY PRICE [facility] ERT [id number] [facility] 2023-04-27 07:51:00 2023-04-27 09:52:00 Emergency Loly Price [facility] 1.2.840.114 350.1.13.10 4.2.7.2.686 [id number] [facility] 2023-04-14 12:38:00 2023-04-14 18:51:00 Emergency X MARQUITA SHAH [facility] ERT [id number] [facility] 2023-04-14 12:38:00 2023-04-14 18:51:00 Emergency Marquita Shah [facility] 1.2.840.114 350.1.13.10 4.2.7.2.686 [id number] [facility] Results Test Description Test Time Test Comments Results Result Comments Source XR Chest 2 vw 2024-10-23 4 22:45:09 XR CHEST 2 VW 11/05/2024 4:00 PM HISTORY: cough . COMPARISON: Chest x-ray dated 04/14/2023. FINDINGS: Cardiomediastinal silhouette is unremarkable. No focal lung opacity, sizable pleural effusion or pneumothorax. Symmetricsmall nodular opacities of bilateral mid to lower lung zones are likelynipple shadow. No acute osseous abnormality. [facility] XR WRIST 3+ VW RIGHT 2024-05-25 0 [...] digit proximal phalangeal head, likelyrepresenting foreign bodies. [facility] XR HAND 3+ VW RIGHT 2024-05-25 0 14:40:51 EXAM: [...] digit proximal phalangeal head, likelyrepresenting foreign bodies. [facility] 14:24:36* Test Item Value Reference Range Interpretation Comme nts MAGNESIUM (test code = 5362991644) 2.1 mg/dL 1.7-2.4 Lab Interpretation (test cod e = 38816-5) [facility] (50720)2023-07-01 14:24:15* Test Item Value Reference Range Interpretation Comme nts NA (test code = 8615475782) 137 mmol/L 135-145 K (test code = 2578754504) 4.3 mmol/L 3.5-5.0 CL (test code = 3476001211) 104 mmol/L 98-108 CO2 TOTAL (test code = 7711221012) 25 mmol/L 23-31 AGAP (test code = 3733614748) 8 2-16 BUN (test code = 2790253071) 26 mg/dL 7-23 H GLUCOSE (test code = 1087158776) 99 mg/dL 70-110 CREATININE (test code = 9638040787) 0.88 mg/dL 0.60-1.25 TOTAL BILI (test code = 6733159819) 0.7 mg/dL 0.1-1.1 CALCIUM (test code = 3757881723) 8.7 mg/dL 8.6-10.6 T PROTEIN (test code = 4121401761) 7.6 g/dL 6.3-8.2 ALBUMIN (test code = 1952035960) 4.5 g/dL 3.5-5.0 ALK PHOS (test code = 8731050067) 63 U/L 34-122 ALTv (test code = 1742-6) 29 U/L 5-50 AST(SGOT) (test code = 7254866054) 28 U/L 13-40 eGFR (test code = 0042799126) 88.9 mL/min/1.73m2 CLAUDETTE (test code = CLAUDETTE) [...] imaging tests). Lab Interpretation (test code = 48590-1) [facility] 14:23:55* Test Item Value Reference Range Interpretation Comme nts LIPASE (test code = 1496907582) 39 U/L 0-220 Lab Interpretation (test cod e = 28184-7) [facility] [id number] 14:11:16* Test Item Value Reference Range Interpretation Comme nts WBC (test code = 6690-2) 4.23 See_Comment [[employer]ated [employer]] The system which generated this result transmitted reference range: 4.20 - 10.70 10*3/?L. The reference range was not used to interpret this result as normal/abnormal. RBC (test code = 789-8) 4.71 See_Comment [[employer]] The system which generated this result transmitted [...] g/dL 31.2-35.0 H RDW-SD (test code = 35062-5) 44.7 fL 38.5-51.6 RDW-CV (test code = 788-0) 13.2 % 12.1-15.4 PLT (test code = 777-3) 277 See_Comment [[employer] ge] The system which generated this result transmitted reference range: 150 - 328 10*3/?L. The reference range was not used to interpret this result as normal/abnormal. MPV (test code = 25501-8) 8.8 fL 9.8-13.0 L NRBC/100 WBC (test code = 7717575157) 0.0 See_Comment [Automated [employer]] The system which generated this result transmitted reference range: 0.0 - 10.0 /100 WBCs. The reference range was not used to interpret this result as normal/abnormal. NRBC x10^3 (test code = 1547186488) See_Comment [Automated messa ge] The system which generated this result transmitted reference range: 10*3/?L. The reference range was not used to interpret this result as normal/abnormal. GRAN MAT (NEUT) % (test code = 770-8) 55.4 % IMM GRAN % (test code = 5434979235) 0.20 % LYMPH % (test code = 736-9) 32.4 % MONO % (test code = 5905-5) 7.8 % EOS % (test code = 713-8) 3.5 % BASO % (test code = 706-2) 0.7 % GRAN MAT x10^3(ANC) (test code = 0668176921) 2.34 10*3/uL 1.99-6.95 IMM GRAN x10^3 (test code = 6187839608) 0.00-0.06 LYMPH x10^3 (test code = 731-0) 1.37 10*3/uL 1.09-3.23 MONO x10^3 (test code = 742-7) 0.33 10*3/uL 0.36-1.02 L EOS x10^3 (test code = 711-2) 0.15 10*3/uL 0.06-0.53 BASO x10^3 (test code = 704-7) 0.03 10*3/uL 0.01-0.09 Lab Interpretation (test code = 33464-1) [facility]23* Test Item Value Reference Range Interpretation Comme nts MAGNESIUM (test code = 2420568184) 2.3 mg/dL 1.7-2.4 Lab Interpretation (test cod e = 91583-4) [facility] (27886)2023-04-14 19:48:03* Test Item Value Reference Range Interpretation Comme nts NA (test code = 2459038230) 137 mmol/L 135-145 K (test code = 2729781619) 4.5 mmol/L 3.5-5.0 CL (test code = 0405693053) 100 mmol/L 98-108 CO2 TOTAL (test code = 6189230477) 26 mmol/L 23-31 AGAP (test code = 3018578629) 11 2-16 BUN (test code = 0314155009) 28 mg/dL 7-23 H GLUCOSE (test code = 5655747629) 89 mg/dL 70-110 CREATININE (test code = 1933301684) 0.94 mg/dL 0.60-1.25 TOTAL BILI (test code = 0878801040) 0.9 mg/dL 0.1-1.1 CALCIUM (test code = 3717720990) 8.6 mg/dL 8.6-10.6 T PROTEIN (test code = 2454124707) 7.9 g/dL 6.3-8.2 ALBUMIN (test code = 5603551845) 4.6 g/dL 3.5-5.0 ALK PHOS (test code = 5359652655) 71 U/L 34-122 ALTv (test code = 1742-6) 40 U/L 5-50 AST(SGOT) (test code = 9800374935) 32 U/L 13-40 eGFR (test code = 3684518262) 82.4 mL/min/1.73m2 CLAUDETTE (test code = CLAUDETTE) [...] imaging tests). Lab Interpretation (test code = 06808-4) [facility] 19:48:03* Test Item Value Reference Range Interpretation Comme nts LIPASE (test code = 0964293648) 61 U/L 0-220 Lab Interpretation (test cod e = 51557-3) Normal [facility] WITH [id number] 19:39:21* Test Item Value Reference Range Interpretation Comme nts WBC (test code = 6690-2) 4.79 See_Comment [Automated [employer] [place]] The system which generated this result transmitted reference range: 4.20 - 10.70 10*3/?L. The reference range was not used to interpret this result as normal/abnormal. RBC (test code = 789-8) 4.64 See_Comment [Automated [employer] [place]] The system which generated this result transmitted [...] 35.0 g/dL 31.2-35.0 RDW-SD (test code = 93599-1) 40.9 fL 38.5-51.6 RDW-CV (test code = 788-0) 12.5 % 12.1-15.4 PLT (test code = 777-3) 294 See_Comment [Automated messa ge] The system which generated this result transmitted reference range: 150 - 328 10*3/?L. The reference range was not used to interpret this result as normal/abnormal. MPV (test code = 70778-1) 9.0 fL 9.8-13.0 L NRBC/100 WBC (test code = 8985976286) 0.0 See_Comment [Automated [employer] ssage] The system which generated this result transmitted reference range: 0.0 - 10.0 /100 WBCs. The reference range was not used to interpret this result as normal/abnormal. NRBC x10^3 (test code = 9158727293) See_Comment [Automated messa ge] The system which generated this result transmitted reference range: 10*3/?L. The reference range was not used to interpret this result as normal/abnormal. GRAN MAT (NEUT) % (test code = 770-8) 55.0 % IMM GRAN % (test code = 9890605008) 0.40 % LYMPH % (test code = 736-9) 34.0 % MONO % (test code = 5905-5) 8.1 % EOS % (test code = 713-8) 1.9 % BASO % (test code = 706-2) 0.6 % GRAN MAT x10^3(ANC) (test code = 8963189087) 2.63 10*3/uL 1.99-6.95 IMM GRAN x10^3 (test code = 6855481865) 0.00-0.06 LYMPH x10^3 (test code = 731-0) 1.63 10*3/uL 1.09-3.23 MONO x10^3 (test code = 742-7) 0.39 10*3/uL 0.36-1.02 EOS x10^3 (test code = 711-2) 0.09 10*3/uL 0.06-0.53 BASO x10^3 (test code = 704-7) 0.03 10*3/uL 0.01-0.09 Lab Interpretation (test code = 25402-6) Abnormal [facility] Notes Date/Time Note Provider Source 2024-11-05 19:02:39 PT D/C home. GCS15, VS stable. Given D/C paperwork. Pt ambulatory at time of discharge. Pt educated on med usage, follow up care, s/s worsening condition, need for hydration. Pt verbalized understanding. Pt ambulated from ED in NAD with . Prescriptions x 2 sent to pharmacy. TON Beauchamp RN [facility] 2024-11-05 15:39:18 CC: patient presents to the ER with complaints of viral syndrome that began this weekend. Patient states he has taken cough syrup without relief. Complains of cough, congestion, body aches, sore throat, and feeling "cold." Awake, alert, oriented, resp reg unlabored, skin warm and dry, color appropriate for race, moves all ext without difficulty, amb without assistance. Appears in no distress. TON Curran RN [facility] 2024-06-21 10:29:29 PT D/C home. GCS15, VS stable, no ataxia noted. Given no prescriptions and D/C paperwork. Pt ambulatory with family at time of discharge. Pt educated on wrist strain, splint use, foreign body, med usage, follow up care with ortho, s/s worsening condition. Pt verbalized understanding. [facility] 2024-06-21 08:16:22 Slipped out of vehicle 0530 this AM. Caught himself with right arm. Swelling to right wrist area. He's concerned he broke it. Kori Shannon RN [facility] 2024-01-16 15:37:26 Pt discharged with diagnosis of [...] site, catheter in tact. Joanie Tidwell RN [facility] 2024-01-16 12:54:43 Assumed care from VAIBHAV Priest [facility] 2024-01-16 12:54:30 Report to Joanie ESPOSITO La Priest RN [facility] 2024-01-16 10:52:43 Pt arrived via private car with c/o chest pain that has been ongoing x3 days and becoming worse. 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 [facility] 2023-07-01 08:11:59 Formatting of this n ote might be different from the original. LUQ abd pain with N/V/D starting in Nov worsening today; Denies having a GI specialist; patient reports 10 pound weight loss within a week; Denies pmh Sadia Olivarez RN [facility]
--- NOTE | 2024-12-13 10:38 | ER ---
Nurse's Notes [facility] Name: Romaine Ryan Age: 59 yrs Sex: Male : 1965 Arrival Date: 12/13/2024 Time: 08:27 Bed 11 Private MD: Diagnosis: Fall on same level, unspecified;Pain in right shoulder Presentation: 12/13 08:58 Chief complaint: Patient states: tripped over scooter and fell onto R shoulder this ss morning. C/o R shoulder pain. Coronavirus screen: Client denies travel out of the [place] in the last 14 days. Ebola Screen: Patient denies exposure to infectious person. Patient denies travel to an Ebola-affected area in the 21 days before illness onset. Initial Sepsis Screen: Does the patient meet any 2 criteria? No. Patient's initial sepsis screen is negative. Does the patient have a suspected source of infection? No. Patient's initial sepsis screen is negative. Risk Assessment: Do you want to hurt yourself or someone else? Patient reports no desire to harm self or others. Onset of symptoms was December 13, 2024. 08:58 Method Of Arrival: Ambulatory ss 08:58 Acuity: DAVID 3 ss Triage Assessment: 11:41 General: Appears in no apparent distress. Behavior is calm, cooperative, appropriate ap3 for age. Pain: Complains of pain in right shoulder Pain began this morning. Neuro: Level of Consciousness is awake, alert, obeys commands, Oriented to person, place, time, situation, Appropriate for age Speech is normal. Cardiovascular: Patient's skin is warm and dry. Respiratory: Airway is patent Respiratory effort is even, unlabored, Respiratory pattern is regular, symmetrical. Musculoskeletal: Reports pain in right shoulder. Injury Description: fall. 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 - Infectious Disease History:: Denies. - Social history:: Smoking status: Patient denies any tobacco usage or history of. - Family history:: not pertinent. Screenin:40 [facility] ED Fall Risk Assessment (Adult) History of falling in the last 3 months, ap3 including since admission Yes- fall prone (multiple falls) (3 pts) Confusion or Disorientation No (0 pts) Intoxicated or Sedated No (0 pts) Impaired Gait No (0 pts) Mobility Assist Device Used No (0 pt) Altered Elimination No (0 pt) Score/Fall Risk Level 3 or more points = High Risk Oriented to surroundings, Maintained a safe environment, Educated pt \T\ family on fall prevention, incl call for assistance when getting out of bed, Assessed \T\ reinforced patient's understanding of fall precautions, Hourly rounding (assess needs \T\ fall precautionary measures) done, Used ambulatory aids as needed (educated on \T\ assisted with), Implemented a Fall Risk Plan of Care, Remained w/in arm's length of patient and in sight while toileting, Remained with patient while ambulating, Utilized family, sitter, or virtual maintenance team member as indicated. Abuse screen: Denies threats or abuse. Nutritional screening: No deficits noted. Tuberculosis screening: No symptoms or risk factors identified. Vital Signs: 08:58 BP 143 / 96; Pulse 66; Resp 16; Temp 98.4(O); Pulse Ox 100% on R/A; Weight 72.57 kg; ss Height 5 ft. 8 in. ; Pain 10/10; 08:58 Body Mass Index 24.33 (72.57 kg, 172.72 cm) ss 08:58 Pain Scale: Adult ss ED Course: 08:30 Patient arrived in ED. im 08:33 Paco Knutson MD is Attending Physician. isaiah 09:06 Triage completed. ss 09:06 Arm band placed on right wrist. ss 10:21 Initial lab(s) drawn, by ar, sent to lab. Inserted saline lock: 20 gauge in left kb4 antecubital area, using aseptic technique. Blood collected. Flushed with 10 mL NS. 10:38 Shoulder Right (2 View) XRAY In Process Unspecified. EDMS 10:38 Aaron Mittal MD is Referral Physician. isaiah 11:01 Suraj Lee RN is Primary Nurse. jl7 11:41 No provider procedures requiring assistance completed. IV discontinued, intact, ap3 bleeding controlled, No redness/swelling at site. Pressure dressing applied. 11:42 Patient has correct armband on for positive identification. Provided Education on: ap3 mediations prior to administration . Administered Medications: 09:02 CANCELLED (Duplicate Order): diazepam5 mg PO once isaiah 09:03 CANCELLED (Duplicate Order): ns 0.9% 1000 ml IV at 1000 ml once; to be given as a bolus isaiah over 60 minutes 09:03 CANCELLED (Duplicate Order): mg IVP once isaiah 09:03 CANCELLED (Duplicate Order): Decadron - [id number] mg IVP once isaiah 09:03 CANCELLED (Duplicate Order): fentanyl (pf)25 mcg IVP once isaiah 09:03 CANCELLED (Duplicate Order): ondansetron 4 mg IVP once; over 2 minutes isaiah 11:12 Drug: Diazepam PO 10 mg PO once Route: PO; ap3 11:40 Follow up: Response: No adverse reaction; Pain is decreased ap3 11:12 Drug: [place] PO 10 mg-325 mg 1 tabs PO once Route: PO; ap3 11:40 Follow up: Response: No adverse reaction; Pain is decreased ap3 Medication: 11:42 VIS not applicable for this client. ap3 Outcome: 10:38 Discharge ordered by . [facility] 11:41 Discharged to home ambulatory, with family, ap3 11:41 Condition: good 11:41 Discharge instructions given to patient, family, Instructed on discharge instructions, follow up and referral plans. medication usage, Demonstrated understanding of instructions, follow-up care, medications, Prescriptions given X 2, 11:42 Patient left the ED. ap3 Signatures: Dispatcher [employer] Paco Gibbons MD MD cha Blanchard, Shelby, RN RN ss Leal, Jahala, RN RN jl7 Rosa Maria Toussaint RN RN ap3 Letitia Roche Kayla kb4
--- NOTE | 2024-12-13 10:38 | EDPHYS ---
Physician Documentation [facility] Name: Romaine Ryan Age: 59 yrs Sex: Male : 1965 Arrival Date: 12/13/2024 Time: 08:27 Bed 11 Private MD: ED Physician Paco Knutson HPI: 12/13 09:06 This 59 yrs old Male presents to ER via Ambulatory with complaints of Shoulder isaiah Injury. 09:06 The patient or guardian complains of pain, that is acute. right shoulder. Context: The isaiah problem was sustained at home, resulted from a fall. Onset: The symptoms/episode began/occurred this morning. Modifying factors: the symptoms are alleviated by remaining still, shoulder immobilizer, The symptoms are aggravated by movement. Associated signs and symptoms: The patient has no apparent associated signs or symptoms. Severity of symptoms: At their worst the symptoms were moderate, in the emergency department the symptoms are unchanged. The patient has not experienced similar symptoms in the past. 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 - Infectious Disease History:: Denies. - Social history:: Smoking status: Patient denies any tobacco usage or history of. - Family history:: not pertinent. ROS: 09:06 Constitutional: Negative for fever, chills, and weight loss, Eyes: Negative for injury, isaiah pain, redness, and discharge, ENT: Negative for injury, pain, and discharge, Neck: Negative for injury, pain, and swelling, Cardiovascular: Negative for chest pain, palpitations, and edema, Respiratory: Negative for shortness of breath, cough, wheezing, and pleuritic chest pain, Abdomen/GI: Negative for abdominal pain, nausea, vomiting, diarrhea, and constipation, Back: Negative for injury and pain, : Negative for injury, bleeding, discharge, and swelling, Skin: Negative for injury, rash, and discoloration, Neuro: Negative for headache, weakness, numbness, tingling, and seizure, Psych: Negative for depression, anxiety, suicide ideation, homicidal ideation, and hallucinations, Allergy/Immunology: Negative for hives, rash, and allergies, Endocrine: Negative for neck swelling, polydipsia, polyuria, polyphagia, and marked weight changes, Hematologic/Lymphatic: Negative for swollen nodes, abnormal bleeding, and unusual bruising, 09:06 MS/extremity: Positive for injury or acute deformity, decreased range of motion, pain, swelling, tenderness, of the anterior aspect of right shoulder and posterior aspect of right shoulder, Exam: 09:10 Constitutional: This is a well developed, well nourished patient who is awake, alert, isaiah and in no acute distress. Head/Face: Normocephalic, atraumatic. Eyes: Pupils equal round and reactive to light, extra-ocular motions intact. Lids and lashes normal. Conjunctiva and sclera are non-icteric and not injected. Cornea within normal limits. Periorbital areas with no swelling, redness, or edema. ENT: Nares patent. No nasal discharge, no septal abnormalities noted. Tympanic membranes are normal and external auditory canals are clear. Oropharynx with no redness, swelling, or masses, exudates, or evidence of obstruction, uvula midline. Mucous membranes moist. Neck: Trachea midline, no thyromegaly or masses palpated, and no cervical lymphadenopathy. Supple, full range of motion without nuchal rigidity, or vertebral point tenderness. No Meningismus. Chest/axilla: Normal chest wall appearance and motion. Nontender with no deformity. No lesions are appreciated. Cardiovascular: Regular rate and rhythm with a normal S1 and S2. No gallops, murmurs, or rubs. Normal PMI, no JVD. No pulse deficits. Respiratory: Lungs have equal breath sounds bilaterally, clear to auscultation and percussion. No rales, rhonchi or wheezes noted. No increased work of breathing, no retractions or nasal flaring. Abdomen/GI: Soft, non-tender, with normal bowel sounds. No distension or tympany. No guarding or rebound. No evidence of tenderness throughout. Back: No spinal tenderness. No costovertebral tenderness. Full range of motion. Male : Normal genitalia with no discharge or lesions. Skin: Warm, dry with normal turgor. Normal color with no rashes, no lesions, and no evidence of cellulitis. Neuro: Awake and alert, GCS 15, oriented to person, place, time, and situation. Cranial nerves II-XII grossly intact. Motor strength 5/5 in all extremities. Sensory grossly intact. Cerebellar exam normal. Normal gait. Psych: Awake, alert, with orientation to person, place and time. Behavior, mood, and affect are within normal limits. 09:10 Musculoskeletal/extremity: ROM: limited active range of motion due to pain, limited passive range of motion due to pain, in the anterior aspect of right shoulder and posterior aspect of right shoulder, Circulation is intact in all extremities. Sensation intact. Compartment Syndrome exam of affected extremity: is normal. Vital Signs: 08:58 BP 143 / 96; Pulse 66; Resp 16; Temp 98.4(O); Pulse Ox 100% on R/A; Weight 72.57 kg; ss Height 5 ft. 8 in. ; Pain 10; 08:58 Body Mass Index 24.33 (72.57 kg, 172.72 cm) ss 08:58 Pain Scale: Adult ss MDM: 08:33 Medical Screening Exam initiated isaiah 09:10 Data reviewed: vital signs, nurses notes, radiologic studies. [facility] 12/13 08:51 Order name: CBC with Diff isaiah 12/13 08:51 Order name: Comprehensive Metabolic Panel [facility] 12/13 09:04 Order name: Shoulder Right (2 View) XRAY [facility] 12/13 08:51 Order name: Sling; Complete Time: 11:13 [facility] 12/13 08:51 Order name: Ice pack; Complete Time: 11:13 isaiah Administered Medications: 09:02 CANCELLED (Duplicate Order): diazepam5 mg PO once [facility] 09:03 CANCELLED (Duplicate Order): ns 0.9% 1000 ml IV at 1000 ml once; to be given as a bolus isaiah over 60 minutes 09:03 CANCELLED (Duplicate Order): usamkiwlq61 mg IVP once [facility] 09:03 CANCELLED (Duplicate Order): Decadron - tavkcozfuhiri86 mg IVP once isaiah 09:03 CANCELLED (Duplicate Order): fentanyl (pf)25 mcg IVP once [facility] 09:03 CANCELLED (Duplicate Order): ondansetron 4 mg IVP once; over 2 minutes isaiah 11:12 Drug: Diazepam PO 10 mg PO once Route: PO; ap3 11:40 Follow up: Response: No adverse reaction; Pain is decreased ap3 11:12 Drug: [place] PO 10 mg-325 mg 1 tabs PO once Route: PO; ap3 11:40 Follow up: Response: No adverse reaction; Pain is decreased ap3 Disposition Summary: 12/13/24 10:38 Discharge Ordered Notes: Location: Home isaiah Problem: new isaiah Symptoms: have improved isaiah Condition: Stable isaiah Diagnosis - Fall on same level, unspecified isaiah - Pain in right shoulder isaiah Followup: isaiah - With: Private Physician - When: 2 - 3 days - Reason: Recheck today's complaints, Continuance of care, Re-evaluation by your physician Followup: isaiah - With: Aaron Mittal MD - When: 2 - 3 days - Reason: Recheck today's complaints, Re-evaluation by your physician Discharge Instructions: - Discharge Summary Sheet isaiah - Joint Pain isaiah - Musculoskeletal Pain isaiah - Shoulder Pain isaiah - Shoulder Range of Motion Exercises isaiah - Shoulder Pain, [id number] isaiah - Joint Pain, [id number] isaiah Forms: - Medication Reconciliation Form isaiah - Antibiotic Education isaiah - Prescription Opioid Use isaiah - Patient Portal Instructions isaiah - Leadership Thank You Letter [facility] Prescriptions: - diclofenac sodium 50 mg Oral tablet, delayed release (enteric coated) - take 1 tablet ORAL route every 8 hours as needed for pain; 30 tablet; Refills: isaiah 0, Product Selection Permitted - methocarbamol 750 mg Oral tablet - take 1 tablet ORAL route 4 times per day; 28 tablet; Refills: 0, Product isaiah Selection Permitted Signatures: Dispatcher [employer] EDPaco Jean MD MD cha Blanchard, Shelby, RN RN ss Rosa Maria Toussaint RN RN ap3 Corrections: (The following items were deleted from the chart) 08:51 08:51 Extremity Venous Uni Ltd+US.RAD.BRZ ordered. EDNY EDMS 09:02 08:51 Diazepam PO 5 mg PO once ordered. isaiah [facility] 09:03 08:51 NS 0.9% IV 1000 ml IV at 1000 ml once; to be given as a bolus over 60 minutes isaiah ordered. [facility] 09: 08:51 Ketorolac IVP 15 mg IVP once ordered. isiaah isaiah 09: 08:51 Decadron - Dexamethasone IVP 10 mg IVP once ordered. isaiah colon 09: 08:51 fentaNYL (PF) IVP 25 mcg IVP once ordered. isaiah colon 09: 08:51 Ondansetron IVP 4 mg IVP once; over 2 minutes ordered. isaiah isaiah 09:28 08:51 C Spine Wo Con+CT.RAD.BRZ ordered. EDMS EDMS
[2024-12-13 10:44] LABS: Absolute Eosinophils 0.1 K/uL (0-0.5); Absolute Lymphocytes (CBC) 1.4 K/uL (0.7-4.9); Absolute Monocytes 0.3 K/uL (0.1-1.3); Basophils % 0.7 % (0-1.3); Eosinophils % 2.1 % (0-4.4); Hematocrit 43.3 % (39.6-49.0); Hemoglobin 15.1 g/dL (13.6-17.9); Lymphocytes % 28.2 % (15.3-44.8); MCH 31.9 pg (27.0-35.0); MCHC 34.7 g/dL (32.0-36.0); MCV 91.9 fL (80-100); MPV 7.3 fL (7.6-11.3); Monocytes % 6.8 % (3.3-12.3); Neutrophils % 62.2 % (41.7-73.7); Nucleated Red Blood Cells % 0.1 % (0-0); Platelets 272 thou/uL (152-406); RBC Red Blood Cell Count 4.72 M/uL (4.33-5.43); Red Cell Distribution Width 13.7 % (12.1-15.2)
[2024-12-13 11:05] LABS: Albumin 4.1 g/dL (3.4-5.0); Albumin/Globulin Ratio 1.1 (1.1-1.8); Anion Gap 11.1 mEq/L (5.0-15.0); Bilirubin Total 0.8 mg/dL (0.2-1.0); Globulin 3.6 g/dL (2.3-3.5); Potassium 4.1 mEq/L (3.5-5.1); Protein, Total 7.7 g/dL (6.4-8.2)
[2024-12-13] MEDS ORDERED: HYDROCODONE/APAP 10/325 TAB ONE (11:06)
[2024-12-13] MEDS ORDERED: DIAZEPAM 5 MG TABLET ONE (11:06)
--- NOTE | 2024-12-13 11:54 | RAD REPORT ---
EXAMINATION: XR RIGHT SHOUDLER CLINICAL INDICATION: Male, 59 years old. PAIN RIGHT TECHNIQUE: Multiple views of the right shoulder were obtained. COMPARISON: No prior exam. FINDINGS: Mild arthritic changes are present involving the glenohumeral joint and AC joint. Subacromi al outlet narrowing could indicate underlying rotator cuff pathology. No fracture or dislocation seen.
[2024-12-14 03:21] VITALS: BP 143/96; TEMP 98.4; O2SAT 100
== END 2024-12-13 11:42 | disposition home or self-care (01) ==
LOC: ER 08:27
DX: M25.511 Pain in right shoulder (principal); W18.30XA Fall on same level, unspecified, initial encounter
CPT/HCPCS: 36415; 80053; 85025; 99284